=== PATIENT | male | born 1945 | race Hispanic/Latino ===

== ENCOUNTER → 2018-03-12 | Day surgery (SDC) | payer MEDICARE ==
[2018-03-10 13:45] LABS: BASOPHILS # (AUTO) 0.1 (0.0-0.1); EOSINOPHILS # (AUTO) 0.2 (0.0-0.4); EOSINOPHILS % 2.6 % (0.0-6.0); HEMATOCRIT 44.6 % (38.2-49.6); LYMPHOCYTES # (AUTO) 1.5 (1.0-3.2); LYMPHOCYTES % 23.5 % (18.0-39.1); MEAN CORPUSCULAR HEMOGLOBIN 25.1 pg (28-32); MEAN CORPUSCULAR HGB CONC 31.4 g/dL (31-35); MEAN CORPUSCULAR VOLUME 79.9 fL (81-99); MONOCYTES # (AUTO) 0.7 (0.2-0.8); NEUTROPHILS # (AUTO) 3.9 (2.1-6.9); NEUTROPHILS % 61.7 % (38.7-80.0); PLATELET COUNT 218 x10e3/uL (140-360); RED BLOOD COUNT 5.58 x10e6/uL (4.3-5.7); RED CELL DISTRIBUTION WIDTH 16.8 % (11.7-14.4)
--- NOTE | 2018-03-10 13:48 | Diagnostic Imaging Report ---
PROCEDURE: Frontal and lateral views of the chest. COMPARISON: None. INDICATIONS: PREOPERATIVE CHEST XRAY FOR UROLOGY SURGERY FINDINGS: Lines/tubes: None. Lungs: The lungs are well inflated and clear. There is no evidence of pneumonia or pulmonary edema. Pleura: There is no pleural effusion or pneumothorax. Heart and mediastinum: The heart and the mediastinum are normal. Bones: No acute bony abnormality. Degenerative changes of the thoracic spine. IMPRESSION: No acute cardiopulmonary disease. Dictated by: Gianfranco Landon M.D. on 03/10/2018 at 13:53 Electronically approved by: Gianfranco Landon M.D. on 03/10/2018 at 13:53
[2018-03-10 14:03] LABS: ANION GAP 13.9 mmol/L (8-16); CALCIUM 9.6 mg/dL (8.4-10.2); CREATININE, SERUM 1.3 mg/dL (0.72-1.25); POTASSIUM 3.9 mmol/L (3.5-5.1)
[~2018-03-12] MED LIST: ALBUTEROL0.63 MG/3 INH; ALENDRONATE SOD70 MG PO; ALPRAZOLAM0.5 MG PO; ARICEPT5 MG PO; ASPIR 8181 MG PO; CALCIUM600 MG PO; CARVEDILOL12.5 MG PO; CEFTRIAXONE SOD 1 GM VIAL ONE; CICLOPIROX15 GM TOP; DEXAMETHASONE SOD PHOS INJ 4 MG/ML VIAL ONE; DICLOFENAC TOP; FLUTICASONE PO; HYDROCHLOROTHIA25 MG PO; IMIPRAMINE HCL25 MG PO; IOPAMIDOL 300MG/ML 50ML INFUS..BTL IV ONE; LIDOCAINE HCL 2% LOCAL INJ 5 ML SDV VIAL INJ ONE; LINZESS PO; LISINOPRIL10 MG PO; METFORMIN HCL500 MG PO; MONTELUKAST SOD10 MG PO; NAPROXEN500 M1 PO; OMEPRAZOLE40 MG PO; ONDANSETRON HCL INJ 2 MG/ML VIAL ONE; OXYBUTYNIN CHLOR5 M1 PO; PANTOPRAZOLE SO40 MG PO; PAZEO OP; PRAVASTATIN SOD40 MG PO; PRO AIR INH; PROPOFOL IV EMULSION 10 MG/ML 20 ML VIAL ONE; SERTRALINE HCL100 MG PO; SEVOFLURANE INHAL SOLN 250 ML PEN BTL ONE; SYMBICORT 16010.2 GM INH; TRAZODONE HCL50 MG PO
--- NOTE | 2018-05-04 14:25 | Operative Report ---
DATE OF PROCEDURE: March 12, 2018 PREOPERATIVE DIAGNOSES: 1. Nephrolithiasis. 2. Possible interstitial cystitis. POSTOPERATIVE DIAGNOSES: 1. Nephrolithiasis. 1. Possible interstitial cystitis. PROCEDURES PERFORMED: 1. Cystourethroscopy with bilateral ureteral catheterization and retrograde ureteropyelography (separate procedure performed to evaluate the nephrolithiasis). 2. Interpretation of retrograde ureteropyelography. 3. Supervision of fluoroscopy. No radiologist present. 4. Cystourethroscopy with hydrodistention (separate procedure performed to evaluate for interstitial cystitis). ANESTHESIA: General. COMPLICATIONS: None. CLINICAL SUMMARY: Harpreet Santiago is a 72-year-old man with a history of stone. The patient has refractory urge-type urinary incontinence, has failed multiple medications. He has failed 2 separate InterStim percutaneous stimulation tests. He is brought to the operating room for the above procedures. He is aware of the risks of bleeding, infection, injury to adjacent structures, need for additional procedures and elected to proceed. OPERATIVE PROCEDURE IN DETAIL: Informed consent was verified. Harpreet Santiago was properly identified, taken to the operating room and placed on the cystoscopy table in supine position, and anesthesia was uneventfully begun. The patient was then carefully and gently repositioned in the dorsal lithotomy position with all pressure points well padded. His genitalia were prepared and draped in the usual sterile fashion. The 22.5-Chilean cystoscope sheath with the visual obturator in place was atraumatically inserted in the patient's urethra. It was guided down the unremarkable distal urethra past some wide-caliber stricture that probably is not clinically significant at the bulbar region. We dilated across this stricture with the visual obturator and into the patient's prostate bed, which was not significant for any inflammation. We entered the patient's bladder, which was significant for grade 2 trabeculations throughout. There was a tiny little stone that was evacuated. The ureteral catheter was utilized to cannulate each ureter, and retrograde ureteropyelograms were performed. Interpretation of retrograde ureteropyelography: Contrast was instilled in a retrograde fashion bilaterally. There were no tumors. I could not visualize any of the patient's stones. Unobstructed drainage was observed bilaterally fluoroscopically. There was no hydronephrosis. Hydrodistention of the bladder was then carried out for exactly 2 minutes and at 80 cm of water height. Following holding this in place for 2 minutes, the patient had a bladder capacity under anesthesia of only 750 mL. Following drainage, panendoscopy revealed mild erythema and rare glomerulations. The patient's bladder was then drained, the cystoscope was withdrawn, and the patient was uneventfully reversed from anesthesia and taken to the recovery room in stable condition. There were no complications of the procedure. He tolerated the procedure well. Plans will be to follow the patient up in the office and determine whether he has responded and received any symptom relief from the hydrodistention. Job#: [id number] EV
--- OUTSIDE RECORDS SUMMARY | 2018-05-06 00:44 | XMS REPORT | Summary of Care ---
Author Author [facility] Primary Care [facility] Organization [facility] Address Unknown Phone Unavailable Encounter HQ Kimani(FIN) [id number] Date(s): 11/11/17 - 11/12/17 [facility] [address], [address] [place], [place] [address]- [phone] Vital Signs No data available for this section Problem List Condition Effective Dates Status Health Status Informant Allergic Active rhinitis(Confirmed) Benign essential Active hypertension(Confirm ed) Benign prostatic Active hyperplasia(Confirme d) Dementia(Confirmed) Active CPAP (continuous Active positive airway pressure) dependence(Confirmed ) GERD Active (gastroesophageal reflux disease)(Confirmed) BETHANY (generalized Active anxiety disorder)(Confirmed) S/P TKR (total knee Active replacement)(Confirm ed) Insomnia(Confirmed) Active Bilateral chronic Active knee pain(Confirmed) Mixed Active hyperlipidemia(Confi rmed) Polyarthralgia(Confi Active rmed) Osteoporosis(Confirm Active ed) Persistent Active cough(Confirmed) Elevated Active TSH(Confirmed) Bilateral shoulder Active pain(Confirmed) Sleep Active apnea(Confirmed) Type 2 diabetes Active mellitus without complications(Confir med) Unsteady Active gait(Confirmed) Allergies, Adverse Reactions, Alerts Substance Reaction Severity Status NKDA Active Medications alendronate 70 mg oral tablet 70 mg=1 tab, PO, Q7D, with 6 to 8 ounces plain water, at least 30 minutes before first food, beverage, or medication of the day, # 12 tab, 3 Refill(s), Pharmacy: [id number] Start Date: 11/11/17 Status: Ordered ProAir HFA 90 mcg/inh inhalation aerosol with adapter 2 puff, INHALER, Q6H, PRN wheezing, coughing, or shortness of breath, # 3 ea, 1 Refill(s), Pharmacy: [facility] #[id number] Start Date: 11/11/17 Status: Ordered Results No data available for this section Immunizations Given and Recorded Vaccine Date Status Refusal Reason pneumococcal 13-valent vaccine1 09/02/17 Given 1Result Comment: Patient waited 15 min with no reaction. Procedures Procedure Date Related Diagnosis Body Site Status Examination of eye1 08/28/17 Completed Reduction of fracture of upper arm with 2012 Completed internal fixation2 Total replacement of right knee joint 2012 Completed Replacement of right knee joint Completed 1DR Jaylon 2left forearm Social History Social History Type Response Substance Abuse Use: None. Exercise Exercise type: none. Employment/School Status: Retired. Other: Lives by himself at a senior community. Residence is tailored to needs of elderly. Has a care provider for 3 hours daily. Occasionally uses a cane/walker with gait.. Alcohol Past, Type Beer, Liquor. Smoking Status Never smoker; Exposure to Tobacco Smoke None; Cigarette Smoking Last 365 Days No; Reg Smoking Cessation Counseling No entered on: 10/26/17 Assessment and Plan No data available for this section
--- OUTSIDE RECORDS SUMMARY | 2018-05-06 00:44 | XMS REPORT | Summary of Care ---
Author Author [facility] Organization [facility] Address Unknown Phone Unavailable Encounter HQ Kimani(FIN) [id number] Date(s): 09/14/17 - 09/15/17 [facility] [address], [address] [place], [place] [address]- [phone] Vital Signs No data available for this [...] Substance Reaction Severity Status NKDA Active Medications No data available for this section Results No data available for this section [...] Alcohol Past, Type Beer, Liquor. Smoking Status Former smoker; Type: Cigarettes; Exposure to Tobacco Smoke None; Cigarette Smoking Last 365 Days No; Reg Smoking Cessation Counseling No entered on: 12/08/17 Assessment and Plan No data available for this section
--- OUTSIDE RECORDS SUMMARY | 2018-05-06 00:44 | XMS REPORT | Summary of Care ---
Author Author [facility] Organization [facility] Address Unknown Phone Unavailable Encounter NAILA Harman(FIN) [id number] Date(s): 12/08/17 - 12/08/17 [facility] [address] [place] [address]- Discharge Disposition: Home or Self Care Attending Physician: Severo Carballo MD Referring Physician: Severo Carballo MD Vital Signs No data available for this [...]
--- OUTSIDE RECORDS SUMMARY | 2018-05-06 00:44 | XMS REPORT | Summary of Care ---
Author Author [facility] Organization [facility] Address Unknown Phone Unavailable Encounter NAILA Harman(FIN) [id number] Date(s): 09/14/17 - 09/15/17 [facility] [address], [address] [place], [place] [address]- [phone] Vital Signs No data available for this [...]
--- OUTSIDE RECORDS SUMMARY | 2018-05-06 00:44 | XMS REPORT | Summary of Care ---
Author Author [facility] Organization [facility] Address Unknown Phone Unavailable Encounter NAILA Harman(FIN) [id number] Date(s): 09/02/17 - 09/02/17 [facility] [address], [address] [place] [address]- [phone] Discharge Disposition: Home or Self Care Attending Physician: Khushbu Olmstead MD Vital Signs Most recent to 1 oldest [Reference Range]: Height 154.94 cm (09/02/17 1:40 PM) Temperature Oral 97.8 DegF [96.4-99.1 DegF] (09/02/17 1:40 PM) Blood Pressure 142/74 mmHg [90-140/60-90 mmHg] *HI* (09/02/17 1:40 PM) Respiratory Rate 16 BRMIN [14-20 BRMIN] (09/02/17 1:40 PM) Peripheral Pulse 63 bpm Rate [60-100 bpm] (09/02/17 1:40 PM) Weight 88.182 kg (09/02/17 1:40 PM) Body Mass Index 36.73 m2 (09/02/17 1:40 PM) Problem List Condition Effective Dates Status Health [...] Substance Reaction Severity Status NKDA Active Medications acitretin 25 mg oral capsule 25 mg=1 cap, PO, Daily, # 14 cap, 0 Refill(s) Start Date: 09/02/17 Stop Date: 09/16/17 Status: Ordered albuterol 0.083% inhalation solution 2.5 mg=3 mL, NEB, Q6H, PRN as needed for shortness of breath and wheezing, # 300 mL, 3 Refill(s), Pharmacy: [facility]/pharmacy #[id number] Start Date: 09/10/17 Status: Ordered albuterol 0.083% inhalation solution 2.5 mg=3 mL, NEB, Q6H, 0 Refill(s) Start Date: 09/02/17 Stop Date: 09/10/17 Status: Completed alendronate 70 mg oral tablet 70 mg=1 tab, PO, Q7D, with 6 to 8 ounces plain water, at least 30 minutes before first food, beverage, or medication of the day, # 12 tab, 3 Refill(s) Start Date: 09/02/17 Stop Date: 11/11/17 Status: Discontinued ALPRAZOLam 0.5 mg oral tablet 0.5 mg=1 tab, PO, Daily, PRN anxiety, # 30 tab, 0 Refill(s) Start Date: 09/02/17 Stop Date: 09/02/18 Status: Ordered ALPRAZOLam 0.5 mg oral tablet 0.5 mg=1 tab, PO, Daily, # 30 tab, 0 Refill(s) Start Date: 09/02/17 Stop Date: 09/02/17 Status: Discontinued Brianna Low Dose 81 mg oral delayed release tablet 81 mg=1 tab, PO, Daily, 0 Refill(s) Start Date: 09/02/17 Status: Ordered Calcium 600+D oral tablet 1 tab, PO, BID, 0 Refill(s) Start Date: 09/02/17 Status: Ordered carvedilol 6.25 mg oral tablet 6.25 mg=1 tab, PO, BID, # 180 tab, 1 Refill(s) Start Date: 09/02/17 Stop Date: 10/09/17 Status: Discontinued ciclopirox topical 8% solution 1 appl, TOP, Daily, # 9.9 ml, 11 Refill(s) Start Date: 09/02/17 Stop Date: 09/16/17 Status: Discontinued clobetasol topical 0.05% cream 1 appl, TOP, BID, # 60 gm, 0 Refill(s) Start Date: 09/02/17 Stop Date: 09/16/17 Status: Ordered diclofenac sodium 1% topical cream 0 Refill(s) Start Date: 09/02/17 Status: Ordered donepezil 10 mg oral tablet 10 mg=1 tab, PO, Daily, # 90 tab, 1 Refill(s) Start Date: 09/02/17 Stop Date: 09/02/17 Status: Discontinued donepezil 10 mg oral tablet 10 mg=1 tab, PO, Daily, # 90 tab, 1 Refill(s), Pharmacy: [facility]/pharmacy #[id number] Start Date: 09/02/17 Stop Date: 03/01/18 Status: Ordered fexofenadine 180 mg oral tablet 180 mg=1 tab, PO, Daily, # 90 tab, 0 Refill(s) Start Date: 09/02/17 Stop Date: 09/24/17 Status: Discontinued fluticasone 50 mcg inhalation powder 50 microgram=1 ea, INHALATION, BID, # 180 ea, 0 Refill(s) Start Date: 09/02/17 Status: Ordered Home Medication Milanta, PO, Daily, Refill(s) 0 Start Date: 09/02/17 Stop Date: 09/24/17 Status: Discontinued Home Medication Nighttime cough, PO, Daily, Refill(s) 0 Start Date: 09/02/17 Stop Date: 09/24/17 Status: Discontinued hydrochlorothiazide 12.5 mg oral tablet 12.5 mg=1 tab, PO, Daily, # 90 tab, 1 Refill(s) Start Date: 09/02/17 Status: Ordered Linzess 145 mcg oral capsule 145 microgram=1 cap, PO, Daily, 30 minutes prior to the first meal of the day, # 30 cap, 0 Refill(s) Start Date: 09/02/17 Stop Date: 10/09/17 Status: Discontinued metFORMIN 500 mg oral tablet 500 mg=1 tab, PO, BID-Meals, # 180 tab, 1 Refill(s) Start Date: 09/02/17 Stop Date: 09/16/17 Status: Discontinued montelukast 10 mg oral tablet 10 mg=1 tab, PO, Bedtime, # 90 tab, 1 Refill(s) Start Date: 09/02/17 Stop Date: 10/09/17 Status: Discontinued naproxen 500 mg oral tablet 500 mg=1 tab, PO, BID, PRN Pain, # 30 tab, 0 Refill(s) Start Date: 09/02/17 Status: Ordered pantoprazole 40 mg oral enteric coated tablet 40 mg=1 tab, PO, Daily, # 90 tab, 1 Refill(s) Start Date: 09/02/17 Status: Ordered pravastatin 40 mg oral tablet 40 mg=1 tab, PO, Bedtime, # 90 tab, 1 Refill(s) Start Date: 09/02/17 Status: Ordered ProAir HFA 90 mcg/inh inhalation aerosol with adapter 1 puff, INHALER, Q4H, PRN for wheezing, # 8.5 gm, 0 Refill(s) Start Date: 09/02/17 Stop Date: 09/10/17 Status: Completed sertraline 100 mg oral tablet 100 mg=1 tab, PO, Daily, # 90 tab, 0 Refill(s) Start Date: 09/02/17 Status: Ordered Symbicort 160/4.5 inhalation aerosol with adapter 2 puff, INHALATION, BID, # 1 ea, 1 Refill(s) Start Date: 09/02/17 Status: Ordered trazodone 100 mg oral tablet 100 mg=1 tab, PO, Bedtime, PRN Insomnia, X 30 day, # 30 tab, 0 Refill(s), Pharmacy: [facility]/pharmacy #[id number] Start Date: 10/30/17 Stop Date: 11/25/17 Status: Completed trazodone 100 mg oral tablet 100 mg=1 tab, PO, Bedtime, PRN Insomnia, # 30 tab, 0 Refill(s), Pharmacy: [facility]/ pharmacy #[id number] Start Date: 09/02/17 Stop Date: 09/30/17 Status: Completed trazodone 100 mg oral tablet 100 mg=1 tab, PO, Bedtime, PRN Insomnia, # 30 tab, 0 Refill(s), Pharmacy: [facility]/ pharmacy #[id number] Start Date: 09/30/17 Stop Date: 10/30/17 Status: Completed trazodone 50 mg oral tablet 50 mg=1 tab, PO, Bedtime, # 30 tab, 1 Refill(s) Start Date: 09/02/17 Stop Date: 09/02/17 Status: Discontinued Results No data available for this section [...]
--- OUTSIDE RECORDS SUMMARY | 2018-05-06 00:44 | XMS REPORT | Summary of Care ---
Author Author [facility] Organization [facility] Address Unknown Phone Unavailable Encounter HQ Kimani(FIN) [id number] Date(s): 11/25/17 - 11/26/17 [facility] [address], [address] [place], [place] [address]- [phone] Vital Signs No data available for this [...] Substance Reaction Severity Status NKDA Active Medications trazodone 100 mg oral tablet 100 mg=1 tab, PO, Bedtime, PRN Insomnia, # 30 tab, 0 Refill(s), Pharmacy: [facility]/ pharmacy #[id number] Start Date: 11/25/17 Stop Date: 12/25/17 Status: Ordered Results No data available for this section Immunizations Given and Recorded Vaccine Date Status Refusal Reason pneumococcal 13-valent vaccine1 09/02/17 Given 1Result Comment: Patient waited 15 min with no reaction. Procedures Procedure Date Related Diagnosis Body Site Status Examination of eye1 08/28/17 Completed Reduction of fracture of upper arm with 2012 Completed internal fixation2 Total replacement of right knee joint 2013 Completed Replacement of right knee joint Completed [...]
--- OUTSIDE RECORDS SUMMARY | 2018-05-06 00:44 | XMS REPORT | Summary of Care ---
Author Author [facility] Care [facility] Organization [facility] Address Unknown Phone Unavailable Encounter NAILA Harman(FIN) [id number] Date(s): 09/14/17 - 09/15/17 [facility] [address], [address] [place], [place] [address]- [phone] Vital Signs No data available for this [...] Substance Reaction Severity Status NKDA Active Medications ciclopirox topical 8% solution 1 appl, TOP, Daily, # 7 mL, 3 Refill(s), Pharmacy: [id number] Start Date: 09/16/17 Stop Date: 09/16/18 Status: Ordered metFORMIN 500 mg oral tablet 500 mg=1 tab, PO, BID-Meals, # 180 tab, 1 Refill(s), Pharmacy: [facility] # [id number] Start Date: 09/16/17 Stop Date: 03/15/18 Status: Ordered Pazeo ophthalmic solution 1 drp, BOTH EYES, Daily, # 3 mL, 1 Refill(s), Pharmacy: [facility] #[id number] Start Date: 09/16/17 Stop Date: 09/16/18 Status: Ordered Results No data available for [...]
--- OUTSIDE RECORDS SUMMARY | 2018-05-06 00:44 | XMS REPORT | Summary of Care ---
Author Author [facility] Organization [facility] Address Unknown Phone Unavailable Encounter NAILA Harman(FIN) [id number] Date(s): 12/22/17 - 12/23/17 [facility] [address], [address] [place], [place] [address]- [phone] Vital Signs No data available for this [...] Substance Reaction Severity Status NKDA Active Medications donepezil 10 mg oral tablet 10 mg=1 tab, PO, Daily, # 90 tab, 1 Refill(s), Pharmacy: [facility] #[id number] Start Date: 12/22/17 Stop Date: 06/20/18 Status: Ordered OneTouch Ultra Blue Blood Glucose Test Strip Check blood sugar once daily., MISC, Daily, # 100 ea, Not insulin dependent, Does not use insulin pump, Last DM eval date 09/22/17, 5 Refill(s) Start Date: 12/22/17 Status: Ordered Results No data available for [...]
--- OUTSIDE RECORDS SUMMARY | 2018-05-06 00:44 | XMS REPORT | Summary of Care ---
Author Author [facility] Organization [facility] Address Unknown Phone Unavailable Encounter NAILA Harman(FIN) [id number] Date(s): 09/17/17 - 09/18/17 [facility] [address], [address] [place], [place] [address]- [phone] Vital Signs No data available for this [...]
--- OUTSIDE RECORDS SUMMARY | 2018-05-06 00:44 | XMS REPORT | Summary of Care ---
Author Author [facility] Organization [facility] Address Unknown Phone Unavailable Encounter HQ Rachael_ursula(FIN) [id number] Date(s): 11/09/17 - 11/10/17 [facility] [address], [address] [place], [place] [address]- [phone] Vital Signs No data available for this [...]
--- OUTSIDE RECORDS SUMMARY | 2018-05-06 00:44 | XMS REPORT | Summary of Care ---
Author Author [facility] Organization [facility] Address Unknown Phone Unavailable Encounter HQ Kimani(FIN) [id number] Date(s): 09/24/17 - 09/24/17 [facility] [address], [address] [place], [place] [address]- [phone] Discharge Disposition: Home or Self Care Attending Physician: Edyta Casas MD Vital Signs Most recent to 1 oldest [Reference Range]: Height 157.48 cm (09/24/17 12:45 PM) Temperature Oral 97.9 DegF [96.4-99.1 DegF] (09/24/17 12:45 PM) Blood Pressure 135/79 mmHg [90-140/60-90 mmHg] (09/24/17 12:45 PM) Respiratory Rate 16 BRMIN [14-20 BRMIN] (09/24/17 12:45 PM) Peripheral Pulse 70 bpm Rate [60-100 bpm] (09/24/17 12:45 PM) Weight 89.545 kg (09/24/17 12:45 PM) Body Mass Index 36.11 m2 (09/24/17 12:45 PM) Problem List Condition Effective Dates Status [...] Substance Reaction Severity Status NKDA Active Medications Azithromycin 5 Day Dose Pack 250 mg oral tablet See Instructions, Take 2 tablets by mouth the first day then 1 tablet by mouth days 2-5., X 5 day, # 6 tab, 0 Refill(s), [id number] Start Date: 09/24/17 Stop Date: 09/29/17 Status: Completed levocetirizine 5 mg oral tablet 5 mg=1 tab, PO, Bedtime, PRN as needed for allergy symptoms, # 90 tab, 0 Refill( s), [id number], Stop fexofenadine Start Date: 09/24/17 Stop Date: 12/23/17 Status: Ordered Results No data available for [...]
--- OUTSIDE RECORDS SUMMARY | 2018-05-06 00:44 | XMS REPORT | Summary of Care ---
Author Author [facility] Organization [facility] Address Unknown Phone Unavailable Encounter NAILA Harman(BRITNEY) [id number] Date(s): 09/15/17 - 09/15/17 [facility] [address] [place] [address] Encounter Diagnosis Age-related osteoporosis without current pathological fracture (Final) - 09/18/17 Other specified disorders of bone density and structure, other site (Final) - Other specified disorders of bone density and structure, left thigh (Final) - Discharge Disposition: Home or Self Care Attending Physician: Edyta Casas MD Referring Physician: Edyta Casas MD Vital Signs No data available for [...]
--- OUTSIDE RECORDS SUMMARY | 2018-05-06 00:45 | XMS REPORT | Summary of Care ---
Author Author [facility] Organization [facility] Address Unknown Phone Unavailable Encounter HQ Kimani(FIN) [id number] Date(s): 10/06/17 - 10/06/17 [facility] [address] [place] [address] Encounter Diagnosis Cough (Final) - 10/11/17 Discharge Disposition: Home or Self Care Attending Physician: Tiana Odell MD Vital Signs No data available for [...] Reg Smoking Cessation Counseling No entered on: 01/08/18 Assessment and Plan No data available for this section
--- OUTSIDE RECORDS SUMMARY | 2018-05-06 00:45 | XMS REPORT | Summary of Care ---
Author Author [facility] Organization [facility] Address Unknown Phone Unavailable Encounter HQ Kimani(BRITNEY) [id number] Date(s): 01/08/18 - 01/10/18 [facility] [address] [place] [address]- [phone] Discharge Disposition: Home or Self Care Attending Physician: Sho Priest MD Admitting Physician: Sho Priest MD Vital Signs 1 2 3 Most recent to oldest [Reference Range]: 162.56 cm (01/08/18 7:03 AM) Height 98 DegF (01/10/18 11:03 AM) 97.3 DegF (01/10/18 7:06 AM) 97.7 DegF (01/10/18 3:37 AM) Temperature Oral [96.4-99.1 DegF] 169/103 mmHg *HI* (01/10/18 11:03 AM) 152/83 mmHg *HI* (01/10/18 7:06 AM) 166/96 mmHg *HI* (01/10/18 3:37 AM) Blood Pressure [90-140/60-90 mmHg] 18 BRMIN (01/10/18 3:37 AM) 18 BRMIN (01/09/18 11:34 PM) 18 BRMIN (01/09/18 7:51 PM) Respiratory Rate [14-20 BRMIN] 68 bpm (01/10/18 11:03 AM) 78 bpm (01/10/18 7:06 AM) 69 bpm (01/10/18 3:37 AM) Peripheral Pulse Rate [60-100 bpm] 86.364 kg (01/08/18 7:03 AM) Weight 32.68 m2 (01/08/18 7:03 AM) Body Mass Index Problem List Condition Effective Dates Status Health [...] Substance Reaction Severity Status NKDA Active Medications acetaminophen 650 mg, 2 tab, Route: PO, Drug form: TAB, Q4H, Dosing Weight 86.364, kg, PRN Pain 1-3/Temp > 100.4 F, Start date: 01/08/18 9:35:00 CDT, Duration: 30 day, Stop date: 02/07/18 9:34:00 CDT Notes: Do not exceed 4 gm/day. (Same as: Tylenol) Start Date: 01/08/18 Stop Date: 01/10/18 Status: Discontinued acetaminophen-hydrocodone 325 mg-5 mg oral tablet 1 tab, Route: PO, Drug Form: TAB, Dosing Weight 86.364, kg, Q6H, PRN Pain Score 4-6, Start date: 01/08/18 9:35:00 CDT, Duration: 30 day, Stop date: 02/07/18 9: 34:00 CDT Notes: (Same as: Lawrence 325/5) Do not exceed 4gm/day of acetaminophen. Start Date: 01/08/18 Stop Date: 01/10/18 Status: Discontinued aspirin 81 mg, 1 tab, Route: PO, Drug form: ECTAB, Daily, Dosing Weight 86.364, kg, Start date: 01/08/18 20:00:00 CDT, Duration: 30 day, Stop date: 02/07/18 9:00: 00 CDT Notes: Do not crush or chew.(Same As: Ecotrin) Start Date: 01/08/18 Stop Date: 01/10/18 Status: Discontinued Ativan 1 mg, Route: IVP, Drug form: INJ, ONCE, Dosing Weight 86.364, kg, Priority: STAT , Start date: 01/08/18 7:29:00 CDT, Stop date: 01/08/18 7:29:00 CDT Start Date: 01/08/18 Stop Date: 01/08/18 Status: Completed beclomethasone 1 puff, Route: INHALER, Drug Form: AERO/A, BID, Start date: 01/09/18 9:00:00 CDT , Duration: 30 day, Stop date: 02/07/18 17:00:00 CDT Notes: WASTE: Aerosol - Return to Pharmacy (Same As: Qvar) Start Date: 01/09/18 Stop Date: 01/10/18 Status: Discontinued calcium gluconate + Sodium Chloride 0.9% IV 100 mL 2,000 mg, 20 mL, Route: IVPB, ONCE, Dosing Weight 86.364, kg, Start date: 13:12:00 CDT, Stop date: 01/09/18 13:12:00 CDT Notes: WASTE: F/P - Sink; E - Municipal Trash Bin Start Date: 01/09/18 Stop Date: 01/09/18 Status: Deleted carvedilol 6.25 mg, 2 tab, Route: PO, Drug form: TAB, BID, Dosing Weight 86.364, kg, Start date: 01/08/18 21:00:00 CDT, Duration: 30 day, Stop date: 02/07/18 9:00:00 CDT Notes: Give with food. (Same As: Coreg) Start Date: 01/08/18 Stop Date: 01/10/18 Status: Discontinued chlordiazePOXIDE 25 mg oral capsule (Librium) 25 mg, 1 cap, Route: PO, ONCE, Dosing Weight 86.364, kg, Priority: STAT, Start date: 01/08/18 7:29:00 CDT, Stop date: 01/08/18 7:29:00 CDT Start Date: 01/08/18 Stop Date: 01/08/18 Status: Completed chlordiazePOXIDE 25 mg oral capsule (Librium) 25 mg, 1 cap, Route: PO, Drug form: CAP, Q6H, Dosing Weight 86.364, kg, PRN Withdrawal, Alcohol Withdrawal, Start date: 01/08/18 11:54:00 CDT, Duration: 30 day, Stop date: 02/07/18 11:53:00 CDT Start Date: 01/08/18 Stop Date: 01/10/18 Status: Discontinued Dextrose 50% Syringe 25 gm, 50 mL, Route: IVP, Drug Form: INJ, Dosing Weight 86.364, kg, PRN, PRN Blood Glucose Results, Start date: 01/08/18 7:19:00 CDT, Duration: 30 day, Stop date: 02/07/18 7:18:00 CDT Start Date: 01/08/18 Stop Date: 01/10/18 Status: Discontinued Dextrose 50% Syringe 12.5 gm, 25 mL, Route: IVP, Drug Form: INJ, Dosing Weight 86.364, kg, PRN, PRN Blood Glucose Results, Start date: 01/08/18 7:19:00 CDT, Duration: 30 day, Stop date: 02/07/18 7:18:00 CDT Start Date: 01/08/18 Stop Date: 01/10/18 Status: Discontinued Dextrose 50% Syringe 25 mL, Route: IVP, Dosing Weight 86.364, kg, PRN, PRN Blood Glucose Results, Start date: 01/08/18 19:39:00 CDT, Duration: 30 day, Stop date: 02/07/18 19:38: 00 CDT Start Date: 01/08/18 Stop Date: 01/08/18 Status: Deleted Dextrose 50% Syringe 50 mL, Route: IVP, Dosing Weight 86.364, kg, PRN, PRN Blood Glucose Results, Start date: 01/08/18 19:39:00 CDT, Duration: 30 day, Stop date: 02/07/18 19:38: 00 CDT Start Date: 01/08/18 Stop Date: 01/08/18 Status: Deleted Dextrose 50% Syringe 50 mL, Route: IVP, Dosing Weight 86.364, kg, PRN, PRN Blood Glucose Results, Start date: 01/08/18 19:39:00 CDT, Duration: 30 day, Stop date: 02/07/18 19:38: 00 CDT Start Date: 01/08/18 Stop Date: 01/08/18 Status: Deleted Dextrose 50% Syringe 25 mL, Route: IVP, Dosing Weight 86.364, kg, PRN, PRN Blood Glucose Results, Start date: 01/08/18 19:39:00 CDT, Duration: 30 day, Stop date: 02/07/18 19:38: 00 CDT Start Date: 01/08/18 Stop Date: 01/08/18 Status: Deleted docusate 100 mg, 1 cap, Route: PO, Drug form: CAP, BID, Dosing Weight 86.364, kg, PRN as needed for constipation, Start date: 01/08/18 9:35:00 CDT, Duration: 30 day, Stop date: 02/07/18 9:34:00 CDT Notes: (Same as: Colace) (Do Not Crush) Start Date: 01/08/18 Stop Date: 01/10/18 Status: Discontinued donepezil 10 mg, 2 tab, Route: PO, Drug form: TAB, Daily, Dosing Weight 86.364, kg, Start date: 01/09/18 9:00:00 CDT, Duration: 30 day, Stop date: 02/07/18 9:00:00 CDT Notes: (Same as: Aricept) Start Date: 01/09/18 Stop Date: 01/10/18 Status: Discontinued fluticasone 50 mcg inhalation powder 50 microgram, 1 ea, Route: INHALATION, Drug Form: PWDR, Dosing Weight 86.364, kg , BID, Start date: 01/09/18 9:00:00 CDT, Duration: 30 day, Stop date: 02/07/18 17:00:00 CDT Start Date: 01/09/18 Stop Date: 01/08/18 Status: Deleted fluticasone nasal 0.05 mg/inh spray 50 microgram, 1 spray, Route: NASAL, Drug Form: SPRY, Dosing Weight 86.364, kg, Daily, Start date: 01/09/18 9:00:00 CDT, Duration: 30 day, Stop date: 02/07/18 9 :00:00 CDT Start Date: 01/09/18 Stop Date: 01/08/18 Status: Canceled glucagon 1 mg, Route: IM, Drug form: PDR/INJ, PRN, Dosing Weight 86.364, kg, PRN Blood Glucose Results, Start date: 01/08/18 7:19:00 CDT, Duration: 30 day, Stop date: 02/07/18 7:18:00 CDT Start Date: 01/08/18 Stop Date: 01/10/18 Status: Discontinued glucagon 1 mg, Route: IM, PRN, Dosing Weight 86.364, kg, PRN Blood Glucose Results, Start date: 01/08/18 19:39:00 CDT, Duration: 30 day, Stop date: 02/07/18 19:38: 00 CDT Start Date: 01/08/18 Stop Date: 01/08/18 Status: Deleted glucagon 1 mg, Route: IM, PRN, Dosing Weight 86.364, kg, PRN Blood Glucose Results, Start date: 01/08/18 19:39:00 CDT, Duration: 30 day, Stop date: 02/07/18 19:38: 00 CDT Start Date: 01/08/18 Stop Date: 01/08/18 Status: Deleted insulin lispro 1 unit, 0.01 mL, Route: SUB-Q, Drug form: SOLN, Bedtime, Dosing Weight 86.364, kg, PRN Blood Glucose Results, Start date: 01/08/18 19:39:00 CDT, Duration: 30 day, Stop date: 02/07/18 19:38:00 CDT Notes: (Same as: Humalog ) Roll in palms of hands gently; Do not shake ` vigorously. "Single Patient Use Only " WASTE: F/P - Black; E - Municipal Trash Bin Stable for 28 days at room temperature.Expires in days from Date Start Date: 01/08/18 Stop Date: 01/10/18 Status: Discontinued insulin lispro 3 unit, 0.03 mL, Route: SUB-Q, Drug form: SOLN, Bedtime, Dosing Weight 86.364, kg, PRN Blood Glucose Results, Start date: 01/08/18 19:39:00 CDT, Duration: 30 day, Stop date: 02/07/18 19:38:00 CDT Notes: (Same as: Humalog ) Roll in palms of hands gently; Do not shake ` vigorously. "Single Patient Use Only " WASTE: F/P - Black; E - Municipal Trash Bin Stable for 28 days at room temperature.Expires in days from Date Start Date: 01/08/18 Stop Date: 01/10/18 Status: Discontinued insulin lispro 2 unit, 0.02 mL, Route: SUB-Q, Drug form: SOLN, Bedtime, Dosing Weight 86.364, kg, PRN Blood Glucose Results, Start date: 01/08/18 19:39:00 CDT, Duration: 30 day, Stop date: 02/07/18 19:38:00 CDT Notes: (Same as: Humalog ) Roll in palms of hands gently; Do not shake ` vigorously. "Single Patient Use Only " WASTE: F/P - Black; E - Municipal Trash Bin Stable for 28 days at room temperature.Expires in days from Date Start Date: 01/08/18 Stop Date: 01/10/18 Status: Discontinued insulin lispro 4 unit, 0.04 mL, Route: SUB-Q, Drug form: SOLN, Bedtime, Dosing Weight 86.364, kg, PRN Blood Glucose Results, Start date: 01/08/18 19:39:00 CDT, Duration: 30 day, Stop date: 02/07/18 19:38:00 CDT Notes: (Same as: Humalog ) Roll in palms of hands gently; Do not shake ` vigorously. "Single Patient Use Only " WASTE: F/P - Black; E - Municipal Trash Bin Stable for 28 days at room temperature.Expires in days from Date Start Date: 01/08/18 Stop Date: 01/10/18 Status: Discontinued insulin lispro 8 unit, 0.08 mL, Route: SUB-Q, Drug form: SOLN, TID-Before Meals, Dosing Weight 86.364, kg, PRN Blood Glucose Results, Start date: 01/08/18 19:39:00 CDT, Duration: 30 day, Stop date: 02/07/18 19:38:00 CDT Notes: (Same as: Humalog ) Roll in palms of hands gently; Do not shake ` vigorously. "Single Patient Use Only " WASTE: F/P - Black; E - Municipal Trash Bin Stable for 28 days at room temperature.Expires in days from Date Start Date: 01/08/18 Stop Date: 01/10/18 Status: Discontinued insulin lispro 6 unit, 0.06 mL, Route: SUB-Q, Drug form: SOLN, TID-Before Meals, Dosing Weight 86.364, kg, PRN Blood Glucose Results, Start date: 01/08/18 19:39:00 CDT, Duration: 30 day, Stop date: 02/07/18 19:38:00 CDT Notes: (Same as: Humalog ) Roll in palms of hands gently; Do not shake ` vigorously. "Single Patient Use Only " WASTE: F/P - Black; E - Municipal Trash Bin Stable for 28 days at room temperature.Expires in days from Date Start Date: 01/08/18 Stop Date: 01/10/18 Status: Discontinued insulin lispro 10 unit, 0.1 mL, Route: SUB-Q, Drug form: SOLN, TID-Before Meals, Dosing Weight 86.364, kg, PRN Blood Glucose Results, Start date: 01/08/18 19:39:00 CDT, Duration: 30 day, Stop date: 02/07/18 19:38:00 CDT Notes: (Same as: Humalog ) Roll in palms of hands gently; Do not shake ` vigorously. "Single Patient Use Only " WASTE: F/P - Black; E - Municipal Trash Bin Stable for 28 days at room temperature.Expires in days from Date Start Date: 01/08/18 Stop Date: 01/10/18 Status: Discontinued insulin lispro 2 unit, 0.02 mL, Route: SUB-Q, Drug form: SOLN, TID-Before Meals, Dosing Weight 86.364, kg, PRN Blood Glucose Results, Start date: 01/08/18 19:39:00 CDT, Duration: 30 day, Stop date: 02/07/18 19:38:00 CDT Notes: (Same as: Humalog ) Roll in palms of hands gently; Do not shake ` vigorously. "Single Patient Use Only " WASTE: F/P - Black; E - Municipal Trash Bin Stable for 28 days at room temperature.Expires in days from Date Start Date: 01/08/18 Stop Date: 01/10/18 Status: Discontinued insulin lispro 4 unit, 0.04 mL, Route: SUB-Q, Drug form: SOLN, TID-Before Meals, Dosing Weight 86.364, kg, PRN Blood Glucose Results, Start date: 01/08/18 19:39:00 CDT, Duration: 30 day, Stop date: 02/07/18 19:38:00 CDT Notes: (Same as: Humalog ) Roll in palms of hands gently; Do not shake ` vigorously. "Single Patient Use Only " WASTE: F/P - Black; E - Municipal Trash Bin Stable for 28 days at room temperature.Expires in days from Date Start Date: 01/08/18 Stop Date: 01/10/18 Status: Discontinued Lovenox 40 mg, 0.4 mL, Route: SUB-Q, Drug form: INJ, [id number], Dosing Weight 86.364, kg , Start date: 01/08/18 20:00:00 CDT, Duration: 30 day, Stop date: 02/06/18 20:00 :00 CDT Notes: (Same as: Lovenox) Start Date: 01/08/18 Stop Date: 01/10/18 Status: Discontinued montelukast 10 mg, 1 tab, Route: PO, Drug form: TAB, Bedtime, Dosing Weight 86.364, kg, Start date: 01/08/18 21:00:00 CDT, Duration: 30 day, Stop date: 02/06/18 21:00: 00 CDT Notes: (Same as:Singulair) Start Date: 01/08/18 Stop Date: 01/10/18 Status: Discontinued NS (Bolus) IV 1,000 mL, 500 ml/hr, Infuse Over: 2 hr, Route: IV, 1,000, Drug form: INJ, ONCE, Priority: STAT, Dosing Weight 86.364 kg, Start date: 01/08/18 15:13:00 CDT, Stop date: 01/08/18 15:13:00 CDT Start Date: 01/08/18 Stop Date: 01/08/18 Status: Completed NS 1,000 mL 1,000 mL, Rate: 100 ml/hr, Infuse over: 10 hr, Route: IV, Dosing Weight 86.364 kg, Total Volume: 1,000, Start date: 01/08/18 9:36:00 CDT, Duration: 30 day, Stop date: 02/07/18 9:35:00 CDT, 2, m2 Start Date: 01/08/18 Stop Date: 01/09/18 Status: Discontinued ondansetron 4 mg, 1 tab, Route: PO, Drug form: TABDIS, Q6H, Dosing Weight 86.364, kg, PRN Nausea & Vomiting, Start date: 01/08/18 9:35:00 CDT, Duration: 30 day, Stop date : 02/07/18 9:34:00 CDT Notes: (Same as: Zofran ODT) Start Date: 01/08/18 Stop Date: 01/10/18 Status: Discontinued ondansetron 4 mg, Route: IVP, ONCE, Dosing Weight 86.364, kg, Priority: STAT, Start date: 7:19:00 CDT, Stop date: 01/08/18 7:19:00 CDT Start Date: 01/08/18 Stop Date: 01/08/18 Status: Discontinued Os-Cj 500 500 mg, 1 tab, Route: PO, Drug form: CHEWTAB, Q8H, Start date: 01/09/18 14:00: 00 CDT, Duration: 4 doses or times, Stop date: 01/10/18 14:00:00 CDT Notes: (Same As: Arnulfo)Calcium Carbonate 500 qu=421 mg elemental calcium Dose=_ mg calcium carbonate ( mg elemental calcium) Start Date: 01/09/18 Stop Date: 01/10/18 Status: Completed pantoprazole 40 mg, 1 tab, Route: PO, Drug form: ECTAB, Before Breakfast, Dosing Weight 86.364, kg, Start date: 01/09/18 7:30:00 CDT, Duration: 30 day, Stop date: 02/07 7:30:00 CDT Notes: Tablet should not be chewed or crushed.(Same as: Protonix) Start Date: 01/09/18 Stop Date: 01/10/18 Status: Discontinued potassium chloride 20 mEq oral tablet, extended release 40 mEq, 2 tab, Route: PO, Drug form: ERTAB, ONCE, Dosing Weight 86.364, kg, Start date: 01/09/18 13:12:00 CDT, Stop date: 01/09/18 13:12:00 CDT Notes: (Same as: K-Dur 20)"Do Not Crush"For patients unable to swallow tablet, dissolve in one half glass of water. Allow about 2 minutes for the tablets to disintegrate. Stir before giving to prepare slurry and administer.Please exclude Patients with feeding tube less than 14 Frisian (Dobhoff, J-tube etc) and pediatric and patients. With food and full glass of water Start Date: 01/09/18 Stop Date: 01/09/18 Status: Completed pravastatin 40 mg, 2 tab, Route: PO, Drug form: TAB, Bedtime, Dosing Weight 86.364, kg, Start date: 01/08/18 21:00:00 CDT, Duration: 30 day, Stop date: 02/06/18 21:00: 00 CDT Notes: (Same as: Pravachol) Start Date: 01/08/18 Stop Date: 01/10/18 Status: Discontinued Reglan 10 mg, 2 mL, Route: IVP, Drug form: INJ, ONCE, Dosing Weight 86.364, kg, Priority: STAT, Start date: 01/08/18 7:30:00 CDT, Stop date: 01/08/18 7:30:00 CDT Notes: (Same as: Reglan) Start Date: 01/08/18 Stop Date: 01/08/18 Status: Completed Saline Flush 0.9% 10 mL, Route: IVP, Drug Form: INJ, Dosing Weight 86.364, kg, PRN, PRN Line Flush , Start date: 01/08/18 7:19:00 CDT, Duration: 30 day, Stop date: 02/07/18 7:18: 00 CDT Notes: Same as: BD Posiflush Sterile Start Date: 01/08/18 Stop Date: 01/10/18 Status: Discontinued sertraline 100 mg, 1 tab, Route: PO, Drug form: TAB, Daily, Dosing Weight 86.364, kg, Start date: 01/09/18 9:00:00 CDT, Duration: 30 day, Stop date: 02/07/18 9:00:00 CDT Notes: (Same as: Zoloft) Start Date: 01/09/18 Stop Date: 01/10/18 Status: Discontinued Sodium Chloride 0.9% (Bolus) IV 1,000 mL, 1000 ml/hr, Infuse Over: 1 hr, Route: IV, 1,000, Drug form: INJ, ONCE , Priority: STAT, Dosing Weight 86.364 kg, Start date: 01/08/18 7:19:00 CDT, Stop date: 01/08/18 7:19:00 CDT Start Date: 01/08/18 Stop Date: 01/08/18 Status: Completed Sodium Chloride 0.9% IV 1,000 mL + M.V.I.-12 10 mL Daily + folic acid IV 1 mg Daily + thiamine IV 1 1,000 mL, Rate: 100 ml/hr, Infuse over: 10.1 hr, Route: IV, Dosing Weight 86.364 kg, Total Volume: 1,011.2, Start date: 01/08/18 7:29:00 CDT, Duration: 1 doses or times, Stop date: 01/08/18 17:34:00 CDT, 2, m2 Notes: PROTECT FROM LIGHTREFRIGERATE Start Date: 01/08/18 Stop Date: 01/08/18 Status: Completed Symbicort 160/4.5 inhalation aerosol with adapter 2 inhalation, Route: INHALATION, Drug Form: AERO/A, Dosing Weight 86.364, kg, BID, Start date: 01/09/18 9:00:00 CDT, Duration: 30 day, Stop date: 02/07/18 17: 00:00 CDT Notes: (Same as: Symbicort)WASTE: Aerosol - Return to Pharmacy Start Date: 01/09/18 Stop Date: 01/10/18 Status: Discontinued thiamine 100 mg, 1 tab, Route: PO, Drug form: TAB, Daily, Dosing Weight 86.364, kg, Start date: 01/09/18 9:00:00 CDT, Duration: 30 day, Stop date: 02/07/18 9:00:00 CDT Notes: (Same As: Vitamin B1) Start Date: 01/09/18 Stop Date: 01/10/18 Status: Discontinued trazodone 100 mg, 2 tab, Route: PO, Drug form: TAB, Bedtime, Dosing Weight 86.364, kg, PRN Insomnia, Start date: 01/08/18 19:42:00 CDT, Duration: 30 day, Stop date: 19:41:00 CDT Notes: (Same As: Desyrel) Start Date: 01/08/18 Stop Date: 01/10/18 Status: Discontinued Tylenol with Codeine #3 oral tablet 1 tab, PO, Q6H, PRN Pain, # 15 tab, 0 Refill(s) Start Date: 01/10/18 Status: Ordered Results ELECTROLYTES 1 2 3 Most recent to oldest [Reference Range]: 143 mEq/L (01/10/18 4:06 AM) 142 mEq/L (01/09/18 6:15 AM) 140 mEq/L (01/08/18 7:55 AM) Sodium Lvl [135-145 mEq/L] 3.7 mEq/L (01/10/18 4:06 AM) 3.2 mEq/L *LOW* (01/09/18 6:15 AM) 3.5 mEq/L (01/08/18 7:55 AM) Potassium Lvl [3.5-5.1 mEq/L] 109 mEq/L (01/10/18 4:06 AM) 107 mEq/L (01/09/18 6:15 AM) 102 mEq/L (01/08/18 7:55 AM) Chloride Lvl [95-109 mEq/L] 30 mEq/L (01/10/18 4:06 AM) 28 mEq/L (01/09/18 6:15 AM) 26 mEq/L (01/08/18 7:55 AM) CO2 [24-32 mEq/L] 7.7 mEq/L *LOW* (01/10/18 4:06 AM) 10.2 mEq/L (01/09/18 6:15 AM) 15.5 mEq/L (01/08/18 7:55 AM) AGAP [10.0-20.0 mEq/L] CHEM PANEL 1 2 3 Most recent to oldest [Reference Range]: 1.07 mg/dL (01/10/18 4:06 AM) 0.96 mg/dL (01/09/18 6:15 AM) 0.95 mg/dL (01/08/18 7:55 AM) Creatinine Lvl [0.50-1.40 mg/dL] 68 mL/min/1.73m2 1 *NA* (01/10/18 4:06 AM) 78 mL/min/1.73m2 2 *NA* (01/09/18 6:15 AM) 79 mL/min/1.73m2 3 *NA* (01/08/18 7:55 AM) eGFR 13 mg/dL (01/10/18 4:06 AM) 9 mg/dL (01/09/18 6:15 AM) 10 mg/dL (01/08/18 7:55 AM) BUN [7-22 mg/dL] 9 (01/09/18 6:15 AM) 11 (01/08/18 7:55 AM) B/C Ratio [6-25] 89 mg/dL (01/10/18 4:06 AM) 87 mg/dL (01/09/18 6:15 AM) 119 mg/dL *HI* (01/08/18 7:55 AM) Glucose Lvl [70-99 mg/dL] 5.5 g/dL *LOW* (01/09/18 6:15 AM) 7.2 g/dL (01/08/18 7:55 AM) Total Protein [6.4-8.4 g/dL] 3.0 g/dL *LOW* (01/09/18 6:15 AM) 3.8 g/dL (01/08/18 7:55 AM) Albumin Lvl [3.5-5.0 g/dL] 2.5 g/dL *LOW* (01/09/18 6:15 AM) 3.4 g/dL (01/08/18 7:55 AM) Globulin [2.7-4.2 g/dL] 1.2 (01/09/18 6:15 AM) 1.1 (01/08/18 7:55 AM) A/G Ratio [0.7-1.6] 7.9 mg/dL *LOW* (01/10/18 4:06 AM) 6.8 mg/dL 4 *CRIT* (01/09/18 6:15 AM) 7.9 mg/dL *LOW* (01/08/18 7:55 AM) Calcium Lvl [8.5-10.5 mg/dL] 1.6 mg/dL *LOW* (01/09/18 6:15 AM) 1.7 mg/dL *LOW* (01/08/18 7:55 AM) Magnesium Lvl [1.8-2.4 mg/dL] 31 unit/L (01/09/18 6:15 AM) 45 unit/L (01/08/18 7:55 AM) ALT [0-65 unit/L] 33 unit/L (01/09/18 6:15 AM) 46 unit/L *HI* (01/08/18 7:55 AM) AST [0-37 unit/L] 48 unit/L (01/09/18 6:15 AM) 86 unit/L (01/08/18 7:55 AM) Alk Phos [39-136 unit/L] 0.8 mg/dL (01/09/18 6:15 AM) 0.7 mg/dL (01/08/18 7:55 AM) Bili Total [0.2-1.3 mg/dL] 172 unit/L (01/08/18 7:55 AM) Lipase Lvl [73-393 unit/L] 0.84 mmol/L *HI* (01/08/18 7:55 AM) Ketone Quantitative [<=0.27 mmol/L] 0.9 mMol/L (01/09/18 6:15 AM) 2.8 mMol/L *HI* (01/08/18 4:42 PM) 6.3 mMol/L 5 *CRIT* (01/08/18 1:57 PM) Lactic Acid Lvl [0.5-2.2 mMol/L] 1Result Comment: The eGFR is calculated using the CKD-EPI formula. In most young , healthy individuals the eGFR will be >90 mL/min/1.73m2. The eGFR declines with age. An eGFR of 60-89 may be normal in some populations, particularly the elderly, for whom the CKD-EPI formula has not been extensively validated. Use of the eGFR is not recommended in the following populations: Individuals with unstable creatinine concentrations, including patients and those with serious co-morbid conditions. Patients with extremes in muscle mass or diet. The data above are obtained from the National Kidney Disease Education Program ( NKDEP) which additionally recommends that when the eGFR is used in patients with extremes of body mass index for purposes of drug dosing, the eGFR should be multiplied by the estimated BMI. 2Result Comment: The eGFR is calculated using the CKD-EPI formula. In most young , healthy individuals the eGFR will be >90 mL/min/1.73m2. The eGFR declines with age. An eGFR of 60-89 may be normal in some populations, particularly the elderly, for whom the CKD-EPI formula has not been extensively validated. Use of the eGFR is not recommended in the following populations: Individuals with unstable creatinine concentrations, including patients and those with serious co-morbid conditions. Patients with extremes in muscle mass or diet. The data above are obtained from the National Kid[employer] Disease Education Program ( NKDEP) which additionally recommends that when the eGFR is used in patients with extremes of body mass index for purposes of drug dosing, the eGFR should be multiplied by the estimated BMI. 3Result Comment: The eGFR is calculated using the CKD-EPI formula. In most young , healthy individuals the eGFR will be >90 mL/min/1.73m2. The eGFR declines with age. An eGFR of 60-89 may be normal in some populations, particularly the elderly, for whom the CKD-EPI formula has not been extensively validated. Use of the eGFR is not recommended in the following populations: Individuals with unstable creatinine concentrations, including patients and those with serious co-morbid conditions. Patients with extremes in muscle mass or diet. The data above are obtained from the National Kidney Disease Education Program ( NKDEP) which additionally recommends that when the eGFR is used in patients with extremes of body mass index for purposes of drug dosing, the eGFR should be multiplied by the estimated BMI. 4Result Comment: Critical Result(s) called to Joshua Clement at 01/09/2018 07:52 by Tanner Albarran. Read back OK. 5Result Comment: Critical Result(s) called to Jo Millard at 01/08/2018 14: 41 byHA. Read back OK. CARDIAC ENZYMES 1 2 3 Most recent to oldest [Reference Range]: 0.08 ng/mL (01/09/18 1:30 AM) 0.08 ng/mL (01/08/18 8:01 PM) 0.06 ng/mL (01/08/18 7:55 AM) Troponin-I [0.00-0.40 ng/mL] TOXICOLOGY 1 2 3 Most recent to oldest [Reference Range]: .026 % *NA* (01/08/18 7:55 AM) Etoh (%) 26 mg/dL *NA* (01/08/18 7:55 AM) Ethanol Lvl URINE AND STOOL 1 2 3 Most recent to oldest [Reference Range]: Clear (01/08/18 10:09 AM) UA Turbidity [Clear] Yellow *NA* (01/08/18 10:09 AM) UA Color [Yellow] 7.0 (01/08/18 10:09 AM) UA pH [5.0-8.0] 1.017 (01/08/18 10:09 AM) UA Spec Grav [<=1.030] 150 mg/dL *ABN* (01/08/18 10:09 AM) UA Glucose [Negative mg/dL] Small *ABN* (01/08/18 10:09 AM) UA Blood [Negative] Trace mg/dL *ABN* (01/08/18 10:09 AM) UA Ketones [Negative mg/dL] 100 mg/dL *ABN* (01/08/18 10:09 AM) UA Protein [Negative mg/dL] <=1.0 mg/dL *NA* (01/08/18 10:09 AM) UA Urobilinogen [0.1-1.0 mg/dL] Negative *NA* (01/08/18 10:09 AM) UA Bili [Negative] Negative (01/08/18 10:09 AM) UA Leuk Est [Negative] Negative (01/08/18 10:09 AM) UA Nitrite [Negative] 4 /HPF (01/08/18 10:09 AM) UA WBC [0-5 /HPF] 3 /HPF *HI* (01/08/18 10:09 AM) UA RBC [0-2 /HPF] Few /HPF *NA* (01/08/18 10:09 AM) UA Bacteria [None Seen /HPF] Occasional /LPF *NA* (01/08/18 10:09 AM) UA Sq Epi [Few /LPF] Few /LPF *NA* (01/08/18 10:09 AM) UA Mucus [None Seen /LPF] HEMATOLOGY 1 2 3 Most recent to oldest [Reference Range]: 4.8 K/CMM (01/09/18 6:15 AM) 6.5 K/CMM (01/08/18 7:55 AM) WBC [3.7-10.4 K/CMM] 4.44 M/CMM *LOW* (01/09/18 6:15 AM) 5.23 M/CMM (01/08/18 7:55 AM) RBC [4.70-6.10 M/CMM] 12.4 g/dL *LOW* (01/09/18 6:15 AM) 14.7 g/dL (01/08/18 7:55 AM) Hgb [14.0-18.0 g/dL] 37.8 % *LOW* (01/09/18 6:15 AM) 44.7 % (01/08/18 7:55 AM) Hct [42.0-54.0 %] 85.1 fL (01/09/18 6:15 AM) 85.5 fL (01/08/18 7:55 AM) MCV [80.0-94.0 fL] 27.8 pg (01/09/18 6:15 AM) 28.0 pg (01/08/18 7:55 AM) MCH [27.0-31.0 pg] 32.7 g/dL (01/09/18 6:15 AM) 32.8 g/dL (01/08/18 7:55 AM) MCHC [32.0-36.0 g/dL] 16.1 % *HI* (01/09/18 6:15 AM) 16.1 % *HI* (01/08/18 7:55 AM) RDW [11.5-14.5 %] 7.1 fL *LOW* (01/09/18 6:15 AM) 6.8 fL *LOW* (01/08/18 7:55 AM) MPV [7.4-10.4 fL] 151 K/CMM (01/09/18 6:15 AM) 189 K/CMM (01/08/18 7:55 AM) Platelet [133-450 K/CMM] 58.7 % (01/09/18 6:15 AM) 81.1 % *HI* (01/08/18 7:55 AM) Segs [45.0-75.0 %] 28.1 % (01/09/18 6:15 AM) 10.5 % *LOW* (01/08/18 7:55 AM) Lymphocytes [20.0-40.0 %] 8.6 % (01/09/18 6:15 AM) 7.2 % (01/08/18 7:55 AM) Monocytes [2.0-12.0 %] 3.6 % (01/09/18 6:15 AM) 0.3 % (01/08/18 7:55 AM) Eosinophils [0.0-4.0 %] 1.0 % (01/09/18 6:15 AM) 0.9 % (01/08/18 7:55 AM) Basophils [0.0-1.0 %] 2.8 K/CMM (01/09/18 6:15 AM) 5.2 K/CMM (01/08/18 7:55 AM) Segs-Bands # [1.5-8.1 K/CMM] 1.3 K/CMM (01/09/18 6:15 AM) 0.7 K/CMM *LOW* (01/08/18 7:55 AM) Lymphocytes # [1.0-5.5 K/CMM] 0.4 K/CMM (01/09/18 6:15 AM) 0.5 K/CMM (01/08/18 7:55 AM) Monocytes # [0.0-0.8 K/CMM] 0.2 K/CMM (01/09/18 6:15 AM) Eosinophils # [0.0-0.5 K/CMM] 0.1 K/CMM (01/08/18 7:55 AM) Basophils # [0.0-0.2 K/CMM] Immunizations Given and Recorded Vaccine Date Status [...] No entered on: 01/08/18 Assessment and Plan Extracted from: Title: Discharge Summary * Author: Sho Priest MD Date: 01/10/18 Discharge Information Disposition to home Condition stable Medications: See med reconciliation form Diet: Heart healthy Discharge Plan In the event of any worsening symptom patient was to come back to the ED for further evaluation Discharge summary to greater than 35 minutes Extracted from: Title: Clinical Document Author: Sho Priest MD Date: 01/09/18 Progress Note SUBJECTIVE: Patient seen and evaluated at bedside. No overnight events. Denies chest pain, nausea, vomiting, diarrhea, lightheadness, abdomen pain or dizziness. Reports having headache today, no evidence of any palpitations tremors or any evidence of DTs OBJECTIVE: VitalsTmp(F)[id number] 01/09 15:3098.076787/84--97--- 01/09 10:5998.946378/74--98--- 01/09 07:3097.832278/78--98--- 01/09 04:0098.331283/377240--- 01/09 00:0098.054374/810074--- 24 Hr Tmax: 99.6F (37.56c) at 01/08 20:00Vital Signs are the last 5 in the past 48 hours. I&ORecordInOutBal 06/0924hr Tot 2260 0 2260 06/0824hr Tot 3144 300 2844 Labs (Last four charted values) WBC 4.8(JAN 09)6.5(JAN 08) Hgb L 12.4(JAN 09)14.7(JAN 08) Hct L 37.8(JAN 09)44.7(JAN 08) Plt 151(JAN 09)189(JAN 08) Na 142(JAN 09)140(JAN 08) K L 3.2(JAN 09)3.5(JAN 08) CO2 28(JAN 09)26(JAN 08) Cl 107(JAN 09)102(JAN 08) Cr 0.96(JAN 09)0.95(JAN 08) BUN 9(JAN 09)10(JAN 08) Glucose Random 87(JAN 09)H 119(JAN 08) Mg L 1.6(JAN 09)L 1.7(JAN 08) Ca C 6.8(JAN 09)L 7.9(JAN 08) Troponin 0.08(JAN 09)0.08(JAN 08)0.06(JAN 08) Medications (32) Active Scheduled: (12) aspirin 81 mg ECT 81 mg 1 tab, PO, Daily beclomethasone 40 microgram/inh 8.7gm (COA) 1 puff, INHALER, BID Budesonide/Formoterol 160-4.5 microgram 6gm AERO/A inh 2 inhalation, INHALATION , BID calcium carbonate 500 mg (200 mg elemental) CHEW 500 mg 1 tab, PO, Q8H carvedilol 3.125 mg TAB 6.25 mg 2 tab, PO, BID donepezil 5 mg TAB 10 mg 2 tab, PO, Daily enoxaparin 40 mg/0.4 ml INJ 40 mg 0.4 mL, SUB-Q, [id number] montelukast 10 mg TAB 10 mg 1 tab, PO, Bedtime pantoprazole 40 mg ECT 40 mg 1 tab, PO, Before Breakfast pravastatin 20 mg TAB 40 mg 2 tab, PO, Bedtime sertraline 100 mg TAB 100 mg 1 tab, PO, Daily thiamine 100 mg TAB 100 mg 1 tab, PO, Daily Continuous: (1) sodium chloride 0.9% 1000 ml INJ 1,000 mL 1,000 mL, IV, 100 ml/hr PRN: (19) acetaminophen 325 mg TABLET 650 mg 2 tab, PO, Q4H acetaminophen-hydrocodone 325 mg-5 mg tab 1 tab, PO, Q6H chlordiazePOXIDE 25 mg CAP 25 mg 1 cap, PO, Q6H Dextrose 50% 50 ml INJ syringe 12.5 gm 25 mL, IVP, PRN Dextrose 50% 50 ml INJ syringe 25 gm 50 mL, IVP, PRN docusate sodium 100 mg CAP 100 mg 1 cap, PO, BID glucagon recombinant 1 mg PDR 1 mg, IM, PRN insulin lispro 100 unit/ml 3 ml Vial 2 unit 0.02 mL, SUB-Q, TID-Before Meals insulin lispro 100 unit/ml 3 ml Vial 4 unit 0.04 mL, SUB-Q, TID-Before Meals insulin lispro 100 unit/ml 3 ml Vial 6 unit 0.06 mL, SUB-Q, TID-Before Meals insulin lispro 100 unit/ml 3 ml Vial 8 unit 0.08 mL, SUB-Q, TID-Before Meals insulin lispro 100 unit/ml 3 ml Vial 10 unit 0.1 mL, SUB-Q, TID-Before Meals insulin lispro 100 unit/ml 3 ml Vial 1 unit 0.01 mL, SUB-Q, Bedtime insulin lispro 100 unit/ml 3 ml Vial 2 unit 0.02 mL, SUB-Q, Bedtime insulin lispro 100 unit/ml 3 ml Vial 3 unit 0.03 mL, SUB-Q, Bedtime insulin lispro 100 unit/ml 3 ml Vial 4 unit 0.04 mL, SUB-Q, Bedtime ondansetron 4 mg TAB (orally disintegrating) 4 mg 1 tab, PO, Q6H sodium chloride 0.9% 10ml sterile flush syr BD 10 mL, IVP, PRN trazodone 50 mg TAB 100 mg 2 tab, PO, Bedtime PHYSICAL EXAM: General: NAD, alert and oriented x3 HEENT: normacephalic, atraumatic, PERRLA, EOMI, supple w/ good ROM, normal pharynx Pulm: CTA B/L no w/r/r/c CV: +S1, +S2 no m/r/g, RRR, good cap refill, No JVD, no carotid bruits Abd: ND, NTTP, no rebound or guarding, BS+ Skin: intact, warm and dry, no rashes Musculoskeletal: 5/5 strength, normal range of motion, no swollen joints Neuro: alert and oriented x3, CN 2-12 intact Psychiatry: good judgment and insight Extremities: no edema, cyanosis or clubbing : no horn Chest x-ray: Negative Impression and Plan 1. Chronic alcohol abuse concerning for withdrawalsLibrium p.o. 3 times daily as needed, banana bag, thiamine, monitor for any DTs 01/09: No evidence of any DTs or alcohol withdrawals, as needed Librium 2. Hypertensionstable, continue same home medications 3. History of COPDcontinue with Symbicort, duo nebs 4. History of dementiacontinue with Aricept 5. Type 2 diabetesinsulin sliding scale, Accu-Cheks, A1c 6. ProphylaxisLovenox 7. Fluid electrolytes nutrientsbanana bag, regular diet 8. Lactic acidosisresolved, 0.9 today 9. Hypokalemia/hypocalcemiareplace 10. Dispositioninpatient Discharge planning: Plan to discharge home tomorrow if stable Extracted from: Title: General Admission H&P * Author: Sho Priest MD Date: Patient: ELMO SIDDIQUI Age: 72 years Sex: Male : 1945 Associated Diagnoses: None Author: Sho Priest MD Chief Complaint 01/08/2018 07:03 nausea and vomiting and c/o not feeling well. pt reporting being out of meds and b/p being high. hx of htn, dm. History of Present Illness 72-year-old male with history of diabetes, hyperlipidemia and chronic alcohol drinker who comes into the ED brought in by the [facility] department concerns of alcohol withdrawal. Patient reports his last drink was about 2 days ago. He typically drinks about 1 L of vodka daily not including other forms of liquor. According to the ED note patient was tremulous and had some associated nausea and vomiting including abdominal pain. Patient denies any chest pain or palpitations. Denies any recent cough congestion or any recent fever. Patient seen and evaluated at bedside on the medical floor currently doing well with no other issues. There is no evidence of any withdrawals during my exam and a banana bag. His vital signs were stable. Review of Systems Pertinent positive: Concerns of alcohol withdrawal with tremulousness Pertinent negative: Denies any chest pain palpitation nausea vomiting diarrhea dysuria hematuria frequency urgency lightheadedness dizziness abdominal pain headache shortness of breath or any other complaints The rest of 14 point review systems are reviewed with patient and are negative Health Status Allergies: Allergic Reactions (Selected) Severity Not Documented NKDA- No reactions were documented., Allergies (1) ActiveReaction NKDANone Documented Current medications: (Selected) Inpatient Medications Ordered Dextrose 50% Syringe: 12.5 gm, 25 mL, IVP, PRN, PRN: Blood Glucose Results Dextrose 50% Syringe: 25 gm, 50 mL, IVP, PRN, PRN: Blood Glucose Results Saline Flush 0.9%: 10 mL, IVP, PRN, PRN: Line Flush acetaminophen-hydrocodone 325 mg-5 mg oral tablet: 1 tab, PO, Q6H, PRN: Pain Score 4-6 acetaminophen: 650 mg, PO, Q4H, PRN: Pain 1-3/Temp > 100.4 F docusate: 100 mg, PO, BID, PRN: as needed for constipation glucagon: 1 mg, IM, PRN, PRN: Blood Glucose Results ondansetron: 4 mg, IVP, Q6H, PRN: Nausea & Vomiting Prescriptions Prescribed ALPRAZOLam 0.5 mg oral tablet: 0.5 mg, 1 tab, PO, Daily, PRN: anxiety, 30 tab, 0 Refill(s) Linzess 145 mcg oral capsule: 145 microgram, 1 cap, PO, Daily, for 90 day, 30 minutes prior to the first meal of the day, 90 cap, 1 Refill(s) OneTouch Ultra Blue Blood Glucose Test Strip: Check blood sugar once daily., MISC, Daily, 100 ea, 5 Refill(s) Pazeo ophthalmic solution: 1 drp, BOTH EYES, Daily, 3 mL, 1 Refill(s) ProAir HFA 90 mcg/inh inhalation aerosol with adapter: 2 puff, INHALER, Q6H, PRN : wheezing, coughing, or shortness of breath, 3 ea, 1 Refill(s) albuterol 0.083% inhalation solution: 2.5 mg, 3 mL, NEB, Q6H, PRN: as needed for shortness of breath and wheezing, 300 mL, 3 Refill(s) albuterol 90 mcg/inh inhalation aerosol: 1 puff, INHALATION, Q4H, PRN: for wheezing, 9 gm, 0 Refill(s) alendronate 70 mg oral tablet: 70 mg, 1 tab, PO, Q7D, with 6 to 8 ounces plain water, at least 30 minutes before first food, beverage, or medication of the day , 12 tab, 3 Refill(s) carvedilol 6.25 mg oral tablet: 6.25 mg, 1 tab, PO, BID, 180 tab, 1 Refill(s) ciclopirox topical 8% solution: 1 appl, TOP, Daily, 7 mL, 3 Refill(s) donepezil 10 mg oral tablet: 10 mg, 1 tab, PO, Daily, for 90 day, 90 tab, 1 Refill(s) fluticasone nasal 0.05 mg/inh spray: 1 spray, NASAL, Daily, 1 ea, 5 Refill(s) levocetirizine 5 mg oral tablet: 5 mg, 1 tab, PO, Bedtime, for 90 day, PRN: as needed for allergy symptoms, 90 tab, 0 Refill(s) metFORMIN 500 mg oral tablet: 500 mg, 1 tab, PO, BID-Meals, for 90 day, 180 tab , 1 Refill(s) montelukast 10 mg oral tablet: 10 mg, 1 tab, PO, Bedtime, 90 tab, 1 Refill(s) trazodone 100 mg oral tablet: 100 mg, 1 tab, PO, Bedtime, for 30 day, PRN: Insomnia, 30 tab, 0 Refill(s) Documented Medications Documented Brianna Low Dose 81 mg oral delayed release tablet: 81 mg, 1 tab, PO, Daily, 0 Refill(s) Calcium 600+D oral tablet: 1 tab, PO, BID, 0 Refill(s) Symbicort 160/4.5 inhalation aerosol with adapter: 2 puff, INHALATION, BID, 1 ea , 1 Refill(s) acitretin 25 mg oral capsule: 25 mg, 1 cap, PO, Daily, for 14 day, 14 cap, 0 Refill(s) clobetasol topical 0.05% cream: 1 appl, TOP, BID, for 14 day, 60 gm, 0 Refill(s) diclofenac sodium 1% topical cream: 0 Refill(s) fluticasone 50 mcg inhalation powder: 50 microgram, 1 ea, INHALATION, BID, 180 ea, 0 Refill(s) hydrochlorothiazide 12.5 mg oral tablet: 12.5 mg, 1 tab, PO, Daily, 90 tab, 1 Refill(s) naproxen 500 mg oral tablet: 500 mg, 1 tab, PO, BID, PRN: Pain, 30 tab, 0 Refill (s) pantoprazole 40 mg oral enteric coated tablet: 40 mg, 1 tab, PO, Daily, 90 tab, 1 Refill(s) pravastatin 40 mg oral tablet: 40 mg, 1 tab, PO, Bedtime, 90 tab, 1 Refill(s) sertraline 100 mg oral tablet: 100 mg, 1 tab, PO, Daily, 90 tab, 0 Refill(s), Medications (8) Active Scheduled: (0) Continuous: (0) PRN: (8) acetaminophen 650 mg, PO, Q4H acetaminophen-hydrocodone 1 tab, PO, Q6H Dextrose 50% 50 ml INJ syringe 12.5 gm 25 mL, IVP, PRN Dextrose 50% 50 ml INJ syringe 25 gm 50 mL, IVP, PRN docusate 100 mg, PO, BID glucagon recombinant 1 mg PDR 1 mg, IM, PRN ondansetron 4 mg, IVP, Q6H sodium chloride 0.9% 10ml sterile flush syr BD 10 mL, IVP, PRN Problem list: All Problems Allergic rhinitis / SNOMED CT 700574223 / Confirmed Benign essential hypertension / SNOMED CT 7730527 / Confirmed Benign prostatic hyperplasia / SNOMED CT 848909993 / Confirmed Bilateral chronic knee pain / SNOMED CT 84936554 / Confirmed Bilateral shoulder pain / SNOMED CT 29748031 / Confirmed CPAP (continuous positive airway pressure) dependence / SNOMED CT 2339778084 / Confirmed Dementia / SNOMED CT 99045860 / Confirmed Elevated TSH / SNOMED CT 860822835 / Confirmed BETHANY (generalized anxiety disorder) / SNOMED CT 20291068 / Confirmed GERD (gastroesophageal reflux disease) / SNOMED CT 849117256 / Confirmed Insomnia / SNOMED CT 575419010 / Confirmed Mixed hyperlipidemia / SNOMED CT 778877231 / Confirmed Osteoporosis / SNOMED CT 057196327 / Confirmed Persistent cough / SNOMED CT 906460124 / Confirmed Polyarthralgia / SNOMED CT 216812095 / Confirmed S/P TKR (total knee replacement) / SNOMED CT 0118623473 / Confirmed Sleep apnea / SNOMED CT 995244032 / Confirmed Type 2 diabetes mellitus without complications / SNOMED CT 102956381 / Confirmed Unsteady gait / SNOMED CT 617120198 / Confirmed, Active Problems (19) Allergic rhinitis Benign essential hypertension Benign prostatic hyperplasia Bilateral chronic knee pain Bilateral shoulder pain CPAP (continuous positive airway pressure) dependence Dementia Elevated TSH BETHANY (generalized anxiety disorder) GERD (gastroesophageal reflux disease) Insomnia Mixed hyperlipidemia Osteoporosis Persistent cough Polyarthralgia S/P TKR (total knee replacement) Sleep apnea Type 2 diabetes mellitus without complications Unsteady gait Histories Family History: Cancer of bone.. Mother Cancer of cervix.. Sister Procedure history: Examination of eye ([id number]) on 08/28/2017 at 72 Years. Comments: 09/01/2017 07:34 - Khushbu Olmstead MD, DR Total replacement of right knee joint ([id number]) in 2012 at 68 Years. Reduction of fracture of upper arm with internal fixation ([id number]) in 2013 at 68 Years. Comments: 09/02/2017 21:17 - Edyta Casas MD left forearm Replacement of right knee joint ([id number]). Social History Social & Psychosocial Habits Alcohol 09/02/2017 Use: Past Type: Beer, Liquor Employment/School 09/02/2017 Status: Retired Other: Lives by himself at a senior community. Residence is tailored to needs of elderly. Has a care provider for 3 hours daily. Occasionally uses a cane/ walker with gait. Exercise 09/02/2017 Exercise type: none Substance Abuse 09/02/2017 Use: None Tobacco 12/08/2017 Use: Former smoker Type: Cigarettes Exposure to Tobacco Smoke None Cigarette Smoking Last 365 Days No Reg Smoking Cessation Counseling No 01/08/2018 Use: Never smoker Exposure to Tobacco Smoke None Cigarette Smoking Last 365 Days No Reg Smoking Cessation Counseling No . Past medical history: Diabetes, hyperlipidemia, chronic alcohol abuse, history of seizures Physical Examination VS/Measurements Vital Signs (last 24 hrs) Last Charted Temp Oral98.3 DegF (JAN 08 07:03) Heart Rate Vlyxot41 bpm (JAN 08 08:55) Resp Rate 20 BRMIN (JAN 08 08:55) RGP664 mmHg (JAN 08 08:55) DBP73 mmHg (JAN 08 08:55) CvW864 % (JAN 08 08:55) Hwmrys13.364 kg (JAN 08:03) Mblthl703.56 cm (JAN 08:03) BMI32.68 (JAN 08 07:03) Intake and Output I/O Intake OutputBalance 01/08/20187a-3p 1222.00 0.00 1222.00 3p-11p 1472.00 0.00 1472.00As of 19:45 11p-7a 0.00 0.00 0.00 Totals 2694.00 0.00 2694.00 01/07/20187a-3p 0.00 0.00 0.00 3p-11p 0.00 0.00 0.00 11p-7a 0.00 0.00 0.00 Totals 0.00 0.00 0.00 01/06/20187a-3p 0.00 0.00 0.00 3p-11p 0.00 0.00 0.00 11p-7a 0.00 0.00 0.00 Totals 0.00 0.00 0.00 General: Alert and oriented, No acute distress. Eye: Pupils are equal, round and reactive to light, Extraocular movements are intact, Normal conjunctiva. HENT: Normocephalic, Oral mucosa is moist. Neck: Supple, Non-tender, No jugular venous distention. Respiratory: Lungs are clear to auscultation, Respirations are non-labored. Cardiovascular: Normal rate, Regular rhythm, No murmur. Gastrointestinal: Soft, Non-tender, Non-distended, Normal bowel sounds. Genitourinary: No costovertebral angle tenderness. Musculoskeletal Normal range of motion. Normal strength. Integumentary: Warm, Dry. Neurologic: Alert, Oriented. Cognition and Speech: Oriented, Speech clear and coherent. Psychiatric: Cooperative, Appropriate mood & affect. Review / Management Results review: Labs (Last four charted values) WBC 6.5(JAN 08) Hgb 14.7(JAN 08) Hct 44.7(JAN 08) Plt 189(JAN 08) Na 140(JAN 08) K 3.5(JAN 08) CO2 26(JAN 08) Cl 102(JAN 08) Cr 0.95(JAN 08) BUN 10(JAN 08) Glucose Random H 119(JAN 08) Mg L 1.7(JAN 08) Ca L 7.9(JAN 08) Troponin 0.06(JAN 08). Chest x-ray: Negative Impression and Plan 1. Chronic alcohol abuse concerning for withdrawalsLibrium p.o. 3 times daily as needed, banana bag, thiamine, monitor for any DTs 2. Hypertensionstable, continue same home medications 3. History of COPDcontinue with Symbicort, duo nebs 4. History of dementiacontinue with Aricept 5. Type 2 diabetesinsulin/scale, Accu-Cheks, A1c 6. ProphylaxisLovenox 7. Fluid electrolytes nutrientsbanana bag, regular diet 8. Dispositioninpatient Addendum Lactic acidosis of unknown etiology continue with IV fluids for now, repeat in the by magda Priest MD on 01/08/2018 19:49
--- OUTSIDE RECORDS SUMMARY | 2018-05-06 00:45 | XMS REPORT | Summary of Care ---
Author Author [facility] Organization [facility] Address Unknown Phone Unavailable Encounter HQ Kimani(FIN) [id number] Date(s): 12/07/17 - 12/08/17 [facility] [address] [place] [address]- [phone] Encounter Diagnosis Chest pain in adult (Discharge Diagnosis) - 12/08/17 Cough (Discharge Diagnosis) - 12/08/17 Throat pain in adult (Discharge Diagnosis) - 12/08/17 Discharge Disposition: Home or Self Care Attending Physician: Zhou Yu MD Vital Signs 1 2 3 Most recent to oldest [Reference Range]: 98.4 DegF (12/08/17 12:30 AM) 98.6 DegF (12/07/17 9:35 PM) Temperature Oral [96.4-99.1 DegF] 157/65 mmHg *HI* (12/08/17 1:30 AM) 149/74 mmHg *HI* (12/08/17 12:30 AM) 163/86 mmHg *HI* (12/07/17 9:35 PM) Blood Pressure [90-140/60-90 mmHg] 18 BRMIN (12/08/17 1:30 AM) 17 BRMIN (12/08/17 12:44 AM) 16 BRMIN (12/08/17 12:38 AM) Respiratory Rate [14-20 BRMIN] 74 bpm (12/08/17 1:30 AM) 67 bpm (12/07/17 9:35 PM) Peripheral Pulse Rate [60-100 bpm] Problem List Condition Effective Dates Status Health [...] Substance Reaction Severity Status NKDA Active Medications albuterol 90 mcg/inh inhalation aerosol 1 puff, INHALATION, Q4H, PRN for wheezing, # 9 gm, 0 Refill(s) Start Date: 12/08/17 Status: Ordered Azithromycin 5 Day Dose Pack 250 mg oral tablet See Instructions, Take 2 tablets by mouth the first day then 1 tablet by mouth days 2-5., X 5 day, # 6 tab, 0 Refill(s) Start Date: 12/08/17 Stop Date: 12/13/17 Status: Ordered Saline Flush 0.9% 10 mL, Route: IVP, Drug Form: INJ, Dosing Weight 85, kg, PRN, PRN Line Flush, Start date: 12/07/17 21:43:00 CDT, Duration: 30 day, Stop date: 01/06/18 21:42: 00 CDT Notes: (Same as: BD Posiflush) Start Date: 12/07/17 Stop Date: 12/08/17 Status: Discontinued Tessalon Perles 100 mg oral capsule 100 mg=1 cap, PO, Q8H, PRN cough, do not crush or chew, X 10 day, # 20 cap, 0 Refill(s) Start Date: 12/08/17 Stop Date: 12/18/17 Status: Ordered Results ELECTROLYTES Most recent to 1 oldest [Reference Range]: Sodium Lvl [135-145 140 mEq/L mEq/L] (12/07/17 10:50 PM) Potassium Lvl 3.8 mEq/L [3.5-5.1 mEq/L] (12/07/17 10:50 PM) Chloride Lvl [95-109 101 mEq/L mEq/L] (12/07/17 10:50 PM) CO2 [24-32 mEq/L] 30 mEq/L (12/07/17 10:50 PM) AGAP [10.0-20.0 12.8 mEq/L mEq/L] (12/07/17 10:50 PM) CHEM PANEL Most recent to 1 oldest [Reference Range]: Creatinine Lvl 1.07 mg/dL [0.50-1.40 mg/dL] (12/07/17 10:50 PM) eGFR 68 mL/min/1.73m2 1 *NA* (12/07/17 10:50 PM) BUN [7-22 mg/dL] 12 mg/dL (12/07/17 10:50 PM) B/C Ratio [6-25] 11 (12/07/17 10:50 PM) Glucose Lvl [70-99 119 mg/dL mg/dL] *HI* (12/07/17 10:50 PM) Total Protein 7.4 g/dL [6.4-8.4 g/dL] (12/07/17 10:50 PM) Albumin Lvl [3.5-5.0 3.7 g/dL g/dL] (12/07/17 10:50 PM) Globulin [2.7-4.2 3.7 g/dL g/dL] (12/07/17 10:50 PM) A/G Ratio [0.7-1.6] 1.0 (12/07/17 10:50 PM) Calcium Lvl 8.8 mg/dL [8.5-10.5 mg/dL] (12/07/17 10:50 PM) Phosphorus [2.5-4.5 2.4 mg/dL mg/dL] *LOW* (12/07/17 10:50 PM) Magnesium Lvl 2.0 mg/dL [1.8-2.4 mg/dL] (12/07/17 10:50 PM) ALT [0-65 unit/L] 34 unit/L (12/07/17 10:50 PM) AST [0-37 unit/L] 24 unit/L (12/07/17 10:50 PM) Alk Phos [39-136 75 unit/L unit/L] (12/07/17 10:50 PM) Bili Total [0.2-1.3 0.3 mg/dL mg/dL] (12/07/17 10:50 PM) 1Result Comment: The eGFR is calculated using [...] should be multiplied by the estimated BMI. CARDIAC ENZYMES Most recent to 1 oldest [Reference Range]: Total CK [12-191 85 unit/L unit/L] (12/07/17 10:50 PM) CK MB [0.5-3.6 <1.0 ng/mL ng/mL] (12/07/17 10:50 PM) CK MB Index <1.2 [0.0-2.5] (12/07/17 10:50 PM) Troponin-I <0.02 ng/mL [0.00-0.40 ng/mL] (12/07/17 10:50 PM) BNP [<=100 pg/mL] 36 pg/mL (12/07/17 10:50 PM) HEMATOLOGY Most recent to 1 oldest [Reference Range]: WBC [3.7-10.4 K/CMM] 4.8 K/CMM (12/07/17 10:50 PM) RBC [4.70-6.10 4.58 M/CMM M/CMM] *LOW* (12/07/17 10:50 PM) Hgb [14.0-18.0 g/dL] 13.6 g/dL *LOW* (12/07/17 10:50 PM) Hct [42.0-54.0 %] 40.8 % *LOW* (12/07/17 10:50 PM) MCV [80.0-94.0 fL] 89.1 fL (12/07/17 10:50 PM) MCH [27.0-31.0 pg] 29.7 pg (12/07/17 10:50 PM) MCHC [32.0-36.0 33.4 g/dL g/dL] (12/07/17 10:50 PM) RDW [11.5-14.5 %] 15.4 % *HI* (12/07/17 10:50 PM) MPV [7.4-10.4 fL] 7.3 fL *LOW* (12/07/17 10:50 PM) Platelet [133-450 196 K/CMM K/CMM] (12/07/17 10:50 PM) Segs [45.0-75.0 %] 52.0 % (12/07/17 10:50 PM) Lymphocytes 33.1 % [20.0-40.0 %] (12/07/17 10:50 PM) Monocytes [2.0-12.0 10.0 % %] (12/07/17 10:50 PM) Eosinophils [0.0-4.0 3.9 % %] (12/07/17 10:50 PM) Basophils [0.0-1.0 1.0 % %] (12/07/17 10:50 PM) Segs-Bands # 2.5 K/CMM [1.5-8.1 K/CMM] (12/07/17 10:50 PM) Lymphocytes # 1.6 K/CMM [1.0-5.5 K/CMM] (12/07/17 10:50 PM) Monocytes # [0.0-0.8 0.5 K/CMM K/CMM] (12/07/17 10:50 PM) Eosinophils # 0.2 K/CMM [0.0-0.5 K/CMM] (12/07/17 10:50 PM) PT [12.0-14.7 12.5 seconds seconds] (12/07/17 10:50 PM) INR [0.85-1.17] 0.93 (12/07/17 10:50 PM) PTT [22.9-35.8 34.4 seconds seconds] (12/07/17 10:50 PM) Immunizations Given and Recorded Vaccine Date Status [...]
--- OUTSIDE RECORDS SUMMARY | 2018-05-06 00:45 | XMS REPORT | Summary of Care ---
Author Author [facility] [place] Organization [facility] Address Unknown Phone Unavailable Encounter HQ Rachael_ursula(FIN) [id number] Date(s): 10/09/17 - 10/10/17 [facility] [address], [address] [place] [address]- [phone] Vital Signs No data available for this [...] Substance Reaction Severity Status NKDA Active Medications Linzess 145 mcg oral capsule 145 microgram=1 cap, PO, Daily, 30 minutes prior to the first meal of the day, # 90 cap, 1 Refill(s), Pharmacy: [id number] Start Date: 10/09/17 Stop Date: 04/07/18 Status: Ordered Results No data available for [...]
--- OUTSIDE RECORDS SUMMARY | 2018-05-06 00:45 | XMS REPORT | Summary of Care ---
Author Author [facility] Organization [facility] Address Unknown Phone Unavailable Encounter HQ Kimani(FIN) [id number] Date(s): 10/09/17 - 10/10/17 [facility] [address], [address] [place] [address]- [phone] Vital Signs No data available for this [...] Substance Reaction Severity Status NKDA Active Medications carvedilol 6.25 mg oral tablet 6.25 mg=1 tab, PO, BID, # 180 tab, 1 Refill(s), Pharmacy: [id number] Start Date: 10/09/17 Status: Ordered montelukast 10 mg oral tablet 10 mg=1 tab, PO, Bedtime, # 90 tab, 1 Refill(s), Pharmacy: [id number] Start Date: 10/09/17 Status: Ordered Results No data available for [...]
--- OUTSIDE RECORDS SUMMARY | 2018-05-06 00:45 | XMS REPORT | Summary of Care ---
Author Author [facility] Organization [facility] Address Unknown Phone Unavailable Encounter HQ Kimani(FIN) [phone] Date(s): 10/06/17 - 10/06/17 [facility] [address] [place] [address]- Encounter Diagnosis Cough (Final) - 10/11/17 Discharge [...]
--- OUTSIDE RECORDS SUMMARY | 2018-05-06 00:45 | XMS REPORT | Summary of Care ---
Author Author [facility] Care [facility] Organization [facility] Address Unknown Phone Unavailable Encounter NAILA Harman(FIN) [id number] Date(s): 10/23/17 - 10/24/17 [facility] [address], [address] [place] [address]- [phone] Vital Signs No data available for this [...] Substance Reaction Severity Status NKDA Active Medications fluticasone nasal 0.05 mg/inh spray 1 spray, NASAL, Daily, # 1 ea, 5 Refill(s), Pharmacy: [id number] Start Date: 10/24/17 Status: Ordered Results No data available for [...]
--- OUTSIDE RECORDS SUMMARY | 2018-05-06 00:45 | XMS REPORT | Summary of Care ---
Author Author [facility] Organization [facility] Address Unknown Phone Unavailable Encounter HQ Kimani(FIN) [id number] Date(s): 10/26/17 - 10/26/17 [facility] [address] [place] [address]- Encounter Diagnosis Obstructive sleep apnea (adult) (pediatric) (Final) - 11/09/17 Discharge Disposition: Home or Self Care Attending Physician: Tiana Odell MD Admitting Physician: Tiana Odell MD Referring Physician: Tiana Odell MD Vital Signs No [...] Replacement of right knee joint Completed 1DR Jayoln 2left forearm Social History Social History Type [...]
--- OUTSIDE RECORDS SUMMARY | 2018-05-06 00:45 | XMS REPORT | Summary of Care ---
Author Author [facility] Organization [facility] Address Unknown Phone Unavailable Encounter NAILA Harman(FIN) [id number] Date(s): 10/26/17 - 10/26/17 [facility] [address], [address] [place] [address]- [phone] Discharge Disposition: Home or Self Care Attending Physician: Edyta Casas MD Vital Signs Most recent to 1 oldest [Reference Range]: Height 157.48 cm (10/26/17 9:05 AM) Weight 85 kg (10/26/17 9:05 AM) Body Mass Index 34.27 m2 (10/26/17 9:05 AM) Problem List Condition Effective Dates Status Health [...] Reaction Severity Status NKDA Active Medications No Known Medications Results No data available for this section [...]
--- OUTSIDE RECORDS SUMMARY | 2018-05-06 00:45 | XMS REPORT | Summary of Care ---
Author Author [facility] Care [facility] Organization [facility] Address Unknown Phone Unavailable Encounter HQ Rachael_ursula(FIN) [id number] Date(s): 01/21/18 - 01/21/18 [facility] [address], [address] [place] [address]- [phone] Attending Physician: Edyta Casas MD Vital Signs No [...]
--- OUTSIDE RECORDS SUMMARY | 2018-05-06 00:46 | XMS REPORT | Summary of Care ---
Author Author [facility] Organization [facility] Address Unknown Phone Unavailable Encounter NAILA Harman(BRITNEY) [id number] Date(s): 09/02/15 - 09/02/15 [facility] [address] [place] [address]- [phone] Discharge Diagnosis: Abdominal pain, suprapubic Discharge Disposition: Home Attending Physician: Jeferson Barros MD Vital Signs 1 2 3 Most recent to oldest [Reference Range]: 157.48 cm (09/02/15 5:01 AM) Height 97.7 DegF (09/02/15 9:56 AM) 98.2 DegF (09/02/15 5:01 AM) Temperature Oral [96.4-99.1 DegF] 102/72 mmHg (09/02/15 10:50 AM) 119/63 mmHg (09/02/15 9:56 AM) 111/70 mmHg (09/02/15 9:21 AM) Blood Pressure [90-140/60-90 mmHg] 13 BRMIN *LOW* (09/02/15 10:50 AM) 13 BRMIN *LOW* (09/02/15 9:56 AM) 21 BRMIN *HI* (09/02/15 9:21 AM) Respiratory Rate [14-20 BRMIN] 68 bpm (09/02/15 5:01 AM) Peripheral Pulse Rate [60-100 bpm] 84.091 kg (09/02/15 5:01 AM) Weight 33.91 m2 (09/02/15 5:01 AM) Body Mass Index Problem List Condition Effective Dates Status Health Status Informant Anxiety disorder1 11/10/13 Active Benign essential 11/10/13 Active hypertension2 Benign prostatic 11/10/13 Active hyperplasia3 Body mass index 30+ 11/10/13 Active - obesity4 Cough5 11/10/13 Active Gastroesophageal 11/10/13 Active reflux disease6 Hyperlipidemia7 11/10/13 Active Hypertension(Confirm Resolved ed) Insomnia8 11/10/13 Active Osteoporosis9 11/10/13 Active 1Data migrated from [employer] on 01/02/15. 2Data migrated from [employer] on 01/02/15. 3Data migrated from [employer] on 01/02/15. 4Data migrated from [employer] on 01/02/15. 5Data migrated from [employer] on 01/02/15. 6Data migrated from [employer] on 01/02/15. 7Data migrated from [employer] on 01/02/15. 8Data migrated from [employer] on 01/02/15. 9Data migrated from [employer] on 01/02/15. Allergies, Adverse Reactions, Alerts Substance Reaction Severity Status NKDA Active Medications GI cocktail 30 mL, Route: PO, Dosing Weight 84.091, kg, ONCE, STAT, Start date: 09/02/15 5: 56:00, Stop date: 09/02/15 5:56:00 Start Date: 09/02/15 Stop Date: 09/02/15 Status: Completed NS (Bolus) IV 1,000 mL, 1,000 ml/hr, Infuse Over: 1 hr, Route: IV, 1,000, Drug form: INJ, ONCE , Priority: STAT, Dosing Weight 84.091 kg, Start date: 09/02/15 10:12:00, Duration: 1 doses or times, Stop date: 09/02/15 10:12:00 Start Date: 09/02/15 Stop Date: 09/02/15 Status: Discontinued ondansetron 4 mg, Route: IVP, ONCE, Dosing Weight 84.091, kg, Priority: STAT, Start date: 5:56:00, Stop date: 09/02/15 5:56:00 Start Date: 09/02/15 Stop Date: 09/02/15 Status: Completed Saline Flush 0.9% 10 mL, Route: IVP, Drug Form: INJ, Dosing Weight 84.091, kg, PRN, PRN Line Flush , Start date: 09/02/15 5:56:00, Duration: 30 day, Stop date: 10/02/15 5:55:00 Notes: (Same as: BD Posiflush) Start Date: 09/02/15 Stop Date: 09/02/15 Status: Discontinued Results ELECTROLYTES Most recent to 1 oldest [Reference Range]: Sodium Lvl [135-145 134 mEq/L mEq/L] *LOW* (09/02/15 6:31 AM) Potassium Lvl 3.6 mEq/L [3.5-5.1 mEq/L] (09/02/15 6:31 AM) Chloride Lvl [95-109 100 mEq/L mEq/L] (09/02/15 6:31 AM) CO2 [24-32 mEq/L] 27 mEq/L (09/02/15 6:31 AM) AGAP [10.0-20.0 10.6 mEq/L mEq/L] (09/02/15 6:31 AM) CHEM PANEL Most recent to 1 oldest [Reference Range]: Creatinine Lvl 1.61 mg/dL [0.50-1.40 mg/dL] *HI* (09/02/15 6:31 AM) eGFR 42 mL/min/1.73m2 1 *NA* (09/02/15 6:31 AM) BUN [7-22 mg/dL] 16 mg/dL (09/02/15 6:31 AM) B/C Ratio [6-25] 10 (09/02/15 6:31 AM) Glucose Lvl [70-99 100 mg/dL mg/dL] *HI* (09/02/15 6:31 AM) Total Protein 6.6 g/dL [6.4-8.4 g/dL] (09/02/15 6:31 AM) Albumin Lvl [3.5-5.0 3.6 g/dL g/dL] (09/02/15 6:31 AM) Globulin [2.0-4.0 3.0 g/dL g/dL] (09/02/15 6:31 AM) A/G Ratio [0.7-1.6] 1.2 (09/02/15 6:31 AM) Calcium Lvl 7.9 mg/dL [8.5-10.5 mg/dL] *LOW* (09/02/15 6:31 AM) ALT [0-65 unit/L] 37 unit/L (09/02/15 6:31 AM) AST [0-37 unit/L] 32 unit/L (09/02/15 6:31 AM) Alk Phos [39-136 71 unit/L unit/L] (09/02/15 6:31 AM) Bili Total [0.2-1.3 0.3 mg/dL mg/dL] (09/02/15 6:31 AM) Lipase Lvl [73-393 101 unit/L unit/L] (09/02/15 6:31 AM) 1Result Comment: The eGFR is calculated using [...] Most recent to 1 oldest [Reference Range]: Troponin-I <0.02 ng/mL [0.00-0.40 ng/mL] (09/02/15 6:31 AM) URINE AND STOOL Most recent to 1 oldest [Reference Range]: UA Turbidity [Clear] Clear (09/02/15 6:31 AM) UA Color Ltyellow *NA* (09/02/15 6:31 AM) UA pH [5.0-8.0] 7.0 (09/02/15 6:31 AM) UA Spec Grav 1.011 [<=1.030] (09/02/15 6:31 AM) UA Glucose [Negative Negative mg/dL mg/dL] *NA* (09/02/15 6:31 AM) UA Blood [Negative] Negative (09/02/15 6:31 AM) UA Ketones [Negative Negative mg/dL mg/dL] *NA* (09/02/15 6:31 AM) UA Protein [Negative Negative mg/dL mg/dL] (09/02/15 6:31 AM) UA Urobilinogen <=1.0 mg/dL [0.1-1.0 mg/dL] *NA* (09/02/15 6:31 AM) UA Bili [Negative] Negative *NA* (09/02/15 6:31 AM) UA Leuk Est Negative [Negative] (09/02/15 6:31 AM) UA Nitrite Negative [Negative] (09/02/15 6:31 AM) UA WBC [0-5 /HPF] <1 /HPF (09/02/15 6:31 AM) UA RBC [0-2 /HPF] <1 /HPF (09/02/15 6:31 AM) UA Sq Epi None Seen *NA* (09/02/15 6:31 AM) HEMATOLOGY Most recent to 1 oldest [Reference Range]: WBC [3.7-10.4 K/CMM] 3.8 K/CMM (09/02/15 6:31 AM) RBC [4.70-6.10 4.54 M/CMM M/CMM] *LOW* (09/02/15 6:31 AM) Hgb [14.0-18.0 g/dL] 13.6 g/dL *LOW* (09/02/15 6:31 AM) Hct [42.0-54.0 %] 41.8 % *LOW* (09/02/15 6:31 AM) MCV [80.0-94.0 fL] 92.0 fL (09/02/15 6:31 AM) MCH [27.0-31.0 pg] 30.1 pg (09/02/15 6:31 AM) MCHC [32.0-36.0 32.7 g/dL g/dL] (09/02/15 6:31 AM) RDW [11.5-14.5 %] 15.7 % *HI* (09/02/15 6:31 AM) Platelet [133-450 185 K/CMM K/CMM] (09/02/15 6:31 AM) MPV [7.4-10.4 fL] 7.1 fL *LOW* (09/02/15 6:31 AM) Segs [45.0-75.0 %] 48.4 % (09/02/15 6:31 AM) Lymphocytes 35.9 % [20.0-40.0 %] (09/02/15 6:31 AM) Monocytes [2.0-12.0 9.7 % %] (09/02/15 6:31 AM) Eosinophils [0.0-4.0 4.8 % %] *HI* (09/02/15 6:31 AM) Basophils [0.0-1.0 1.2 % %] *HI* (09/02/15 6:31 AM) Segs-Bands # 1.9 K/CMM [1.5-8.1 K/CMM] (09/02/15 6:31 AM) Lymphocytes # 1.4 K/CMM [1.0-5.5 K/CMM] (09/02/15 6:31 AM) Monocytes # [0.0-0.8 0.4 K/CMM K/CMM] (09/02/15 6:31 AM) Eosinophils # 0.2 K/CMM [0.0-0.5 K/CMM] (09/02/15 6:31 AM) Immunizations No data available for this section Procedures Procedure Date Related Diagnosis Body Site Knee replacement Social History Social History Type Response Smoking Status Never smoker; Exposure to Tobacco Smoke None; Cigarette Smoking Last 365 Days No; Reg Smoking Cessation Counseling No Assessment and Plan No data available for this section
--- OUTSIDE RECORDS SUMMARY | 2018-05-06 00:46 | XMS REPORT | Summary of Care ---
Author Author [facility] Organization [facility] Address Unknown Phone Unavailable Encounter NAILA Harman(BRITNEY) [id number] Date(s): 08/16/15 - 08/16/15 [facility] [address] Discharge Disposition: Home Attending Physician: Joel Mejía MD Referring Physician: Joel Mejía MD Vital Signs Most recent to 1 oldest [Reference Range]: Height 157.48 cm (08/16/15 9:31 AM) Weight 84.091 kg (08/16/15 9:31 AM) Body Mass Index 33.91 m2 (08/16/15 9:31 AM) Problem List Condition Effective Dates Status Health Status Informant Anxiety disorder1 11/10/13 Active Benign essential 11/10/13 Active hypertension2 Benign prostatic 11/10/13 Active hyperplasia3 Body mass index 30+ 11/10/13 Active - obesity4 Cough5 11/10/13 Active Gastroesophageal 11/10/13 Active reflux disease6 Hyperlipidemia7 11/10/13 Active Insomnia8 11/10/13 Active Osteoporosis9 11/10/13 Active 1Data [...] Centricity on 01/02/15. Allergies, Adverse Reactions, Alerts No data available for this section Medications No data available for this section Results No data available for this section Immunizations No data available for this section Procedures No data available for this section Social History No data available for this section Assessment and Plan No data available for this section
--- OUTSIDE RECORDS SUMMARY | 2018-05-06 00:46 | XMS REPORT | Summary of Care ---
Author Author [facility] Care [facility] Organization [facility] Address Unknown Phone Unavailable Encounter HQ Isakr_ursula(FIN) [id number] Date(s): 11/09/17 - 11/10/17 [facility] [address], [address] [place] [address]- [phone] Vital Signs No data available for this [...]
--- OUTSIDE RECORDS SUMMARY | 2018-05-06 00:46 | XMS REPORT | Summary of Care ---
Author Author [facility] Primary [facility] Organization [facility] Address Unknown Phone Unavailable Encounter HQ Kimani(FIN) [id number] Date(s): 11/11/17 - 11/12/17 [facility] [address], [address] [place] [address]- [phone] Vital Signs No data available for this [...] day, # 12 tab, 3 Refill(s), Pharmacy: [id number] Start Date: 11/11/17 Status: Ordered ProAir HFA 90 mcg/inh inhalation aerosol with adapter 2 puff, INHALER, Q6H, PRN wheezing, coughing, or shortness of breath, # 3 ea, 1 Refill(s), Pharmacy: [id number] Start Date: 11/11/17 Status: Ordered Results [...]
--- OUTSIDE RECORDS SUMMARY | 2018-05-06 00:46 | XMS REPORT | Summary of Care ---
Author Author [facility] Care [facility] Organization [facility] Address Unknown Phone Unavailable Encounter HQ Isakr_ursula(FIN) [id number] Date(s): 10/30/17 - 10/31/17 [facility] [address], [address] [place] [address]- [phone] Vital Signs No data available for this [...]
--- OUTSIDE RECORDS SUMMARY | 2018-05-06 00:46 | XMS REPORT ---
Author Author [facility] Address Unknown Phone Unavailable Care Team Providers Care Trauma Program Manager Name Role Phone JAIME DELEON Unavailable Unavailable Problems This patient has no known problems. Allergies, Adverse Reactions, Alerts This patient has no known allergies or adverse reactions. Medications This patient has no known medications. Results Test Description Test Time Test Comments Text Results Atomic Results Result Comments CHEST 2 VIEWS 2018-03-10 13:53:00 [place] [address] Patient Name: ELMO SIDDIQUI MR #: [id number] : 1945 Age/Sex: 72/M Req #: [id number] Adm Physician: Ordered by: NICKI LANTIGUA MD Report #: [id number] Location: OR Room/Bed: Procedure: [id number] DX/CHEST 2 VIEWS Exam Date: 03/10/18 Exam Time: 1325 REPORT STATUS: Signed PROCEDURE: Frontal and lateral views of the chest. COMPARISON: None. INDICATIONS: PREOPERATIVE CHEST XRAY FOR UROLOGY SURGERY FINDINGS: Lines/tubes: None. Lungs: The lungs are well inflated and clear. There is no evidence of pneumonia or pulmonary edema. Pleura: There is no pleural effusion or pneumothorax. Heart and mediastinum: The heart and the mediastinum are normal. Bones: No acute bony abnormality. Degenerative changes of the thoracic spine. IMPRESSION: No acute cardiopulmonary disease. Dictated by: Gianfranco Arce M.D. on 03/10/2018 at 13:53 Electronically approved by: Gianfranco Arce M.D. on 03/10/2018 at 13:53 Dictated By: GIANFRANCO ARCE MD [id number] Transcribed By: JOHANN on 03/10/18 1353 COPY TO: NICKI LANTIGUA III
--- OUTSIDE RECORDS SUMMARY | 2018-05-06 00:46 | XMS REPORT | Summary of Care ---
Author Author [facility] [place] Organization [facility] [place] Address Unknown Phone Unavailable Encounter NAILA Harman(BRITNEY) [id number] Date(s): 12/29/15 - 12/29/15 [facility] [place] [address] [place], [place] [address]- [phone] Discharge Disposition: Home Attending Physician: Gregg Smith MD Vital Signs No data available for [...]
--- OUTSIDE RECORDS SUMMARY | 2018-05-06 00:46 | XMS REPORT | Summary of Care ---
Author Author [facility] Organization [facility] Address Unknown Phone Unavailable Encounter HQ Isakr_ursula(BRITNEY) [id number] Date(s): 01/01/16 - 01/01/16 [facility] [address] Discharge Disposition: Home Attending Physician: Gregg Smith MD Referring Physician: Gregg Smith MD Vital Signs No [...]
--- OUTSIDE RECORDS SUMMARY | 2018-05-06 00:46 | XMS REPORT | Summary of Care ---
Author Author [facility] Organization [facility] Address Unknown Phone Unavailable Encounter NAILA Harman(BRITNEY) [id number] Date(s): 06/20/16 - 06/20/16 [facility] [address] [place] [address]- Discharge Diagnosis: Hematuria Discharge Disposition: Home or Self Care Attending Physician: Allan Boles MD Vital Signs Most recent to 1 2 oldest [Reference Range]: Height 154.94 cm (06/20/16 3:13 PM) Temperature Oral 98 DegF 98.5 DegF [96.4-99.1 DegF] (06/20/16 7:10 PM) (06/20/16 3:13 PM) Blood Pressure 163/85 mmHg 171/94 mmHg [90-140/60-90 mmHg] *HI* *HI* (06/20/16 7:10 PM) (06/20/16 3:13 PM) Respiratory Rate 18 BRMIN 16 BRMIN [14-20 BRMIN] (06/20/16 7:10 PM) (06/20/16 3:13 PM) Peripheral Pulse 70 bpm 69 bpm Rate [60-100 bpm] (06/20/16 7:10 PM) (06/20/16 3:13 PM) Weight 86.364 kg (06/20/16 3:13 PM) Body Mass Index 35.98 m2 (06/20/16 3:13 PM) Problem List Condition Effective Dates Status Health Status Informant Anxiety disorder1 11/10/13 Active Benign essential 11/10/13 Active hypertension2 Benign prostatic 11/10/13 Active hyperplasia3 Body mass index 30+ 11/10/13 Active - obesity4 Cough5 11/10/13 Active Gastroesophageal 11/10/13 Active reflux disease6 Hyperlipidemia7 11/10/13 Active Hypertension(Confirm Resolved ed) Insomnia8 11/10/13 Active Osteoporosis9 11/10/13 Active Enlarged Resolved prostate(Confirmed) 1Data migrated from [employer] on 01/02/15. [...] No data available for this section Results ELECTROLYTES Most recent to 1 oldest [Reference Range]: Sodium Lvl [135-145 141 mEq/L mEq/L] (06/20/16 4:46 PM) Potassium Lvl 3.7 mEq/L [3.5-5.1 mEq/L] (06/20/16 4:46 PM) Chloride Lvl [95-109 103 mEq/L mEq/L] (06/20/16 4:46 PM) CO2 [24-32 mEq/L] 31 mEq/L (06/20/16 4:46 PM) AGAP [10.0-20.0 10.7 mEq/L mEq/L] (06/20/16 4:46 PM) CHEM PANEL Most recent to 1 oldest [Reference Range]: Creatinine Lvl 1.20 mg/dL [0.50-1.40 mg/dL] (06/20/16 4:46 PM) eGFR 60 mL/min/1.73m2 1 *NA* (06/20/16 4:46 PM) BUN [7-22 mg/dL] 17 mg/dL (06/20/16 4:46 PM) Glucose Lvl [70-99 105 mg/dL mg/dL] *HI* (06/20/16 4:46 PM) Calcium Lvl 8.5 mg/dL [8.5-10.5 mg/dL] (06/20/16 4:46 PM) 1Result Comment: The eGFR is calculated [...] should be multiplied by the estimated BMI. HEMATOLOGY Most recent to 1 oldest [Reference Range]: WBC [3.7-10.4 K/CMM] 9.5 K/CMM (06/20/16 4:46 PM) RBC [4.70-6.10 4.56 M/CMM M/CMM] *LOW* (06/20/16 4:46 PM) Hgb [14.0-18.0 g/dL] 13.3 g/dL *LOW* (06/20/16 4:46 PM) Hct [42.0-54.0 %] 39.9 % *LOW* (06/20/16 4:46 PM) MCV [80.0-94.0 fL] 87.4 fL (06/20/16 4:46 PM) MCH [27.0-31.0 pg] 29.2 pg (06/20/16 4:46 PM) MCHC [32.0-36.0 33.4 g/dL g/dL] (06/20/16 4:46 PM) RDW [11.5-14.5 %] 16.7 % *HI* (06/20/16 4:46 PM) Platelet [133-450 179 K/CMM K/CMM] (06/20/16 4:46 PM) MPV [7.4-10.4 fL] 7.7 fL (06/20/16 4:46 PM) Segs [45.0-75.0 %] 75.8 % *HI* (06/20/16 4:46 PM) Lymphocytes 14.4 % [20.0-40.0 %] *LOW* (06/20/16 4:46 PM) Monocytes [2.0-12.0 8.2 % %] (06/20/16 4:46 PM) Eosinophils [0.0-4.0 1.1 % %] (06/20/16 4:46 PM) Basophils [0.0-1.0 0.5 % %] (06/20/16 4:46 PM) Segs-Bands # 7.2 K/CMM [1.5-8.1 K/CMM] (06/20/16 4:46 PM) Lymphocytes # 1.4 K/CMM [1.0-5.5 K/CMM] (06/20/16 4:46 PM) Monocytes # [0.0-0.8 0.8 K/CMM K/CMM] (06/20/16 4:46 PM) Eosinophils # 0.1 K/CMM [0.0-0.5 K/CMM] (06/20/16 4:46 PM) Immunizations No data available for this section Procedures Procedure Date Related Diagnosis Body Site Knee replacement Social History Social History Type Response Smoking Status Never smoker; Exposure to Tobacco Smoke None; Cigarette Smoking Last 365 Days No; Reg Smoking Cessation Counseling No Assessment and Plan No data available for this section
== END | disposition home or self-care (01) ==
LOC: OR 08:31
PROVIDERS: ATTEND Urology
DX: N20.0 Calculus of kidney (principal); N39.41 Urge incontinence; N32.89 Other specified disorders of bladder; N21.0 Calculus in bladder; E11.22 Type 2 diabetes mellitus with diabetic chronic kidney disease; I12.9 Hypertensive chronic kidney disease with stage 1 through stage 4 chronic kidney disease, or unspecified chronic kidney disease; N18.9 Chronic kidney disease, unspecified; N40.1 Benign prostatic hyperplasia with lower urinary tract symptoms; R35.0 Frequency of micturition; R39.14 Feeling of incomplete bladder emptying; R35.1 Nocturia; N32.81 Overactive bladder; N28.1 Cyst of kidney, acquired; N52.9 Male erectile dysfunction, unspecified; E29.1 Testicular hypofunction; G47.30 Sleep apnea, unspecified; E78.00 Pure hypercholesterolemia, unspecified; J45.909 Unspecified asthma, uncomplicated; E66.01 Morbid (severe) obesity due to excess calories; K21.9 Gastro-esophageal reflux disease without esophagitis; F41.9 Anxiety disorder, unspecified; Z01.810 Encounter for preprocedural cardiovascular examination; Z01.812 Encounter for preprocedural laboratory examination; Z01.818 Encounter for other preprocedural examination; Z79.84 Long term (current) use of oral hypoglycemic drugs; Z79.82 Long term (current) use of aspirin; Z68.33 Body mass index [BMI] 33.0-33.9, adult
CPT/HCPCS: 36415 ×2; 52005; 71046; 74420; 80048; 82948; 85025; 93005; C1758; J0696; J1100; J2001; J2405; Q9967

== ENCOUNTER → 2018-05-05 | Day surgery (SDC) | payer MEDICARE ==
[2018-05-03 14:30] LABS: BASOPHILS # (AUTO) 0.1 (0.0-0.1); BASOPHILS % 0.9 % (0.0-1.0); EOSINOPHILS # (AUTO) 0.2 (0.0-0.4); EOSINOPHILS % 2.4 % (0.0-6.0); HEMATOCRIT 45.1 % (38.2-49.6); HEMOGLOBIN 13.7 g/dL (14.0-18.0); LYMPHOCYTES # (AUTO) 1.6 (1.0-3.2); LYMPHOCYTES % 24.8 % (18.0-39.1); MEAN CORPUSCULAR HEMOGLOBIN 23.4 pg (28-32); MEAN CORPUSCULAR HGB CONC 30.4 g/dL (31-35); MONOCYTES # (AUTO) 0.8 (0.2-0.8); MONOCYTES % 11.8 % (4.4-11.3); NEUTROPHILS # (AUTO) 3.9 (2.1-6.9); NEUTROPHILS % 59.8 % (38.7-80.0); PLATELET COUNT 243 x10e3/uL (140-360); RED BLOOD COUNT 5.86 x10e6/uL (4.3-5.7); RED CELL DISTRIBUTION WIDTH 18.6 % (11.7-14.4)
[2018-05-03 14:47] LABS: CALCIUM 9.3 mg/dL (8.4-10.2); CREATININE, SERUM 1.32 mg/dL (0.72-1.25)
[~2018-05-05] MED LIST changes: +BOTULINUM TOXIN TYPE A 100 UNIT VIAL IM ONE; +FENTANYL CITRATE/PF 100MCG/2 ML INJ ONE; -IOPAMIDOL 300MG/ML 50ML INFUS..BTL IV ONE; +MIDAZOLAM HCL 2 MG/2 ML VIAL ONE
[2018-05-05 13:30] VITALS: BP 156/88
--- NOTE | 2018-05-06 01:05 | Operative Report ---
DATE OF PROCEDURE: May 05, 2018 PREOPERATIVE DIAGNOSIS: Refractory urge incontinence. POSTOPERATIVE DIAGNOSIS: Refractory urge incontinence. OPERATION PERFORMED: Cystourethroscopy with intravesical injection of 100 units of Botox. ANESTHESIA: General. COMPLICATIONS: None. CLINICAL SUMMARY: Harpreet Santiago is 72-year-old man with refractory urge incontinence. He has failed multiple medications as well as 2 different attempts at percutaneous InterStim testing. He has also had hydrodistention without improvement. He is brought to the operating room today to attempt Botox. He is aware of the risks of bleeding, infection, injury to adjacent structures, need for additional procedures, and elected to proceed. OPERATIVE PROCEDURE IN DETAIL: Informed consent was verified. Harpreet Santiago was properly identified, taken to the operating room, and placed on the cystoscopy table in supine position. Anesthesia was uneventfully begun. The patient was then carefully and gently repositioned in the dorsal lithotomy position with all pressure points well padded. His genitalia were prepared and draped in usual sterile fashion. The 22.5-Israeli cystoscope sheath with the visual obturator in place was atraumatically inserted into the patient's urethra. The scope was advanced down the relatively unremarkable urethra to the normal sphincteric region, through the prostate bed which was open and into the patient's bladder where panendoscopy revealed grade 1 trabeculations. 100 units of Botox were dissolved in 10 mL of sterile saline. These were injected in 1 mL aliquots in an even distribution throughout the supratrigonal bladder. There was no bleeding. There were no complications. The patient's bladder was drained. The cystoscope was withdrawn, and the patient was uneventfully reversed from anesthesia and taken to recovery room in stable condition. Explicit postoperative instructions were given. Will follow the patient up in the office. Job#: [id number] cc:Aracelis Hernandez M.D.
--- OUTSIDE RECORDS SUMMARY | 2018-05-18 09:42 | XMS REPORT | Continuity of Care Document ---
Author Author Sherry pickering [facility] Interface Address Unknown Phone Unavailable Problems Problem Status Onset Date Classification Date Reported Comments Source VOMITING Active 01/08/2018 [facility] ALCOHOL WITHDRAWAL, ELEVATED LACTIC ACID Active 01/08/2018 [facility] Chest pain in adult 12/08/2017 12/12/2017 [facility] Throat pain in adult 12/08/2017 12/12/2017 [facility] COUGH, CHEST CONGESTION Active 12/07/2017 [facility] M79.609=PAIN IN UNSPECIFIED LIMB M17 Active 11/30/2017 [facility] Obstructive sleep apnea (pediatric) 11/10/2017 02/01/2018 [facility] FIRST NIGHT 86348 Active 10/19/2017 [facility] Cough 10/12/2017 01/13/2018 [facility] R05 Active 10/06/2017 [facility] Age-related osteoporosis without current pathological fracture 09/19/2017 12/22/2017 [facility] OSTEOPOROSIS Active 08/03/2017 [facility] Discharge Diagnosis: Hematuria 06/20/2016 06/23/2016 [facility] BLEEDING CATH Active 06/20/2016 [facility] HEADACHE, MEMORY LOSS Active 12/20/2015 [facility] Discharge Diagnosis: Abdominal pain, suprapubic 09/02/2015 09/05/2015 [facility] ABD PAIN Active 09/02/2015 [facility] COPD HISTORY OF SMOKING Active 08/10/2015 [facility] Anxiety disorder<sup>1</sup> Active 11/10/2013 Problem 01/04/2016 Data migrated from M-Files on 01/02/15. [facility] Benign essential hypertension<sup>2</sup> Active 11/10/2013 Problem 01/04/2016 Data migrated from M-Files on 01/02/15. [facility] Benign prostatic hyperplasia<sup>3</sup> Active 11/10/2013 Problem 01/04/2016 Data migrated from M-Files on 01/02/15. [facility] Body mass index 30+ - obesity<sup>4</sup> Active 11/10/2013 Problem 01/04/2016 Data migrated from [employer] on 01/02/15. [facility] Cough<sup>5</sup> Active 11/10/2013 Problem 01/04/2016 Data migrated from [employer] on 01/02/15. [facility] Gastroesophageal reflux disease<sup>6</sup> Active 11/10/2013 Problem 01/04/2016 Data migrated from [employer] on 01/02/15. [facility] Hyperlipidemia<sup>7</sup> Active 11/10/2013 Problem 01/04/2016 Data migrated from [employer] on 01/02/15. [facility] Insomnia<sup>8</sup> Active 11/10/2013 Problem 01/04/2016 Data migrated from [employer] on 01/02/15. [facility] Osteoporosis<sup>9</sup> Active 11/10/2013 Problem 01/04/2016 Data migrated from [employer] on 01/02/15. [facility] Anxiety disorder<sup>1</sup> Active 11/10/2013 Problem 06/23/2016 Data migrated from [employer] on 01/02/15. PASQUALE Pickering [facility] Benign essential hypertension<sup>2</sup> Active 11/10/2013 Problem 06/23/2016 Data migrated from [employer] on 01/02/15. PASQUALE Pickering [facility] Benign prostatic hyperplasia<sup>3</sup> Active 11/10/2013 Problem 06/23/2016 Data migrated from [employer] on 01/02/15. PASQUALE Pickering [facility] Body mass index 30+ - obesity<sup>4</sup> Active 11/10/2013 Problem 06/23/2016 Data migrated from [employer] on 01/02/15. PASQUALE Pickering [facility] Cough<sup>5</sup> Active 11/10/2013 Problem 06/23/2016 Data migrated from [employer] on 01/02/15. PASQUALE Pickering [facility] Gastroesophageal reflux disease<sup>6</sup> Active 11/10/2013 Problem 06/23/2016 Data migrated from [employer] on 01/02/15. CAMILO Pickering, [facility] Hyperlipidemia<sup>7</sup> Active 11/10/2013 Problem 06/23/2016 Data migrated from [employer] on 01/02/15. CAMILO Pickering, [facility] Insomnia<sup>8</sup> Active 11/10/2013 Problem 06/23/2016 Data migrated from [employer] on 01/02/15. CAMILO Pickering, [facility] Osteoporosis<sup>9</sup> Active 11/10/2013 Problem 06/23/2016 Data migrated from [employer] on 01/02/15. CAMILO Pickering, [facility] Allergic rhinitis Active Problem 02/19/[facility] Benign essential hypertension Active Problem 02/19/2018 [facility] Benign prostatic hyperplasia Active Problem 02/19/2018 [facility] Dementia Active Problem 02/19/2018 [facility] CPAP dependence(<span ID="[id number]</span>) Active Problem 02/19/2018 [facility] GERD (<span ID="[id number]">Confirmed</span>) Active Problem 02/19/2018 [facility] BETHANY (<span ID="[id number]">Confirmed</span>) Active Problem 02/19/2018 [facility] S/P TKR (<span ID="[id number]">Confirmed</span>) Active Problem 02/19/2018 [facility] Insomnia Active Problem 02/19/2018 [facility] Bilateral chronic knee pain Active Problem 02/19/2018 [facility] Mixed hyperlipidemia Active Problem 02/19/2018 [facility] Polyarthralgia Active Problem 02/19/2018 [facility] Osteoporosis Active Problem 02/19/2018 [facility] Persistent cough Active Problem 02/19/2018 [facility] Elevated TSH Active Problem 02/19/2018 [facility] Bilateral shoulder pain Active Problem 02/19/2018 [facility] Sleep apnea Active Problem 02/19/2018 [facility] Type 2 diabetes mellitus without complications Active Problem 02/19/2018 [facility] Unsteady gait Active Problem 02/19/2018 [facility] Other specified disorders of bone density and structure, other site 12/22/2017 [facility] Other specified disorders of bone density and structure, left thigh 12/22/2017 [facility] Hypertension Resolved Problem 06/23/2016 CAMILO Pickering,[facility] Hypertension Resolved Problem 01/04/2016 CAMILO Pickering,[facility] Enlarged prostate Resolved Problem 06/23/2016 [facility] CHRONIC OBSTRUCTIVE PULMON DISEASE W ACU Active [facility] OTHER SPECIFIED CONGENITAL DEFORMITIES Active [facility] AGE-RELATED OSTEOPOROSIS W/O CURRENT PAT Active [facility] ALCOHOL DEPENDENCE WITH WITHDRAWAL, UNSP Active [facility] Medications Medication Details Route Status Patient Instructions Ordering Provider Order Date Source Acetaminophen 300 MG / Codeine Phosphate 30 MG Oral Tablet [Tylenol with Codeine #3] 1 tab, PO, Q6H, PRN Pain, # 15 tab, 0 Refill(s) Active 01/10/2018 [facility] Os-Cj 500 500 mg, 1 tab, Route: PO, Drug form: CHEWTAB, Q8H, Start date: 01/09/18 14:00:00 CDT, Duration: 4 doses or times, Stop date: 01/10/18 14:00:00 CDTNotes: (Same As: Arnulfo) Calcium Carbonate 500 ic=273 mg e lemental calcium Dose= mg calcium carbonate ( mg elemental calcium) No Longer Active 01/09/2018 [facility] potassium chloride 20 mEq oral tablet, extended release 40 mEq, 2 tab, Route: PO, Drug form: ERTAB, ONCE, Dosing Weight 86.364, kg, Start date: 01/09/18 13:12:00 CDT, Stop date: 01/09/18 13:12:00 CDTNotes: (Same as: K-Dur 20) "Do Not Crush" For patients unable to swallow tablet, dissolve in one half glass of water. Allow about 2 minutes for the tablets to disintegrate. Stir before giving to prepare slurry and administer. Please exclude Patient’s with feeding tube less than 14 Alban[place] (Dobhoff, J-tube etc) and pediatric and patients. With food and full glass of water Inactive 01/09/2018 [facility] Calcium Gluconate 2,000 mg, 20 mL, Route: IVPB, ONCE, Dosing Weight 86.364, kg, Start date: 01/09/18 13:12:00 CDT, Stop date: 01/09/18 13:12:00 CDTNotes: WASTE: F/P - Sink; E - Municipal Trash Bin Inactive 01/09/2018 [facility] Fluticasone propionate 0.05 MG/ACTUAT Metered Dose Nasal [place] 50 microgram, 1 spray, Route: NASAL, Drug Form: SPRY, Dosing Weight 86.364, kg, Daily, Start date: 01/09/18 9:00:00 CDT, Duration: 30 day, Stop date: 02/07/18 9:00:00 CDT No Longer Active 01/09/2018 [facility] Fluticasone propionate 0.05 MG/ACTUAT Dry Powder Inhaler 50 microgram, 1 ea, Route: INHALATION, Drug Form: PWDR, Dosing Weight 86.364, kg, BID, Start date: 01/09/18 9:00:00 CDT, Duration: 30 day, Stop date: 02/07/18 17:00:00 CDT No Longer Active 01/09/2018 [facility] donepezil 10 mg, 2 tab, Route: PO, Drug form: TAB, Daily, Dosing Weight 86.364, kg, Start date: 01/09/18 9:00:00 CDT, Duration: 30 day, Stop date: 02/07/18 9:00:00 CDTNotes: (Same as: Aricept) No Longer Active 01/09/2018 [facility] Symbicort 160/4.5 inhalation aerosol with adapter 2 inhalation, Route: INHALATION, Drug Form: AERO/A, Dosing Weight 86.364, kg, BID, Start date: 01/09/18 9:00:00 CDT, Duration: 30 day, Stop date: 02/07/18 17:00:00 CDTNotes: (Same as: Symbicort) WASTE: Aerosol - Return to Pharmacy No Longer Active 01/09/2018 [facility] beclomethasone 1 puff, Route: INHALER, Drug Form: AERO/A, BID, Start date: 01/09/18 9:00:00 CDT, Duration: 30 day, Stop date: 02/07/18 17:00:00 CDTNotes: WASTE: Aerosol - Return to Pharmacy (Same As: Qvar) No Longer Active 01/09/2018 [facility] Sertraline 100 mg, 1 tab, Route: PO, Drug form: TAB, Daily, Dosing Weight 86.364, kg, Start date: 01/09/18 9:00:00 CDT, Duration: 30 day, Stop date: 02/07/18 9:00:00 CDTNotes: (Same as: Zoloft) No Longer Active 01/09/2018 [facility] Thiamine 100 mg, 1 tab, Route: PO, Drug form: TAB, Daily, Dosing Weight 86.364, kg, Start date: 01/09/18 9:00:00 CDT, Duration: 30 day, Stop date: 02/07/18 9:00:00 CDTNotes: (Same As: Vitamin B1) No Longer Active 01/09/2018 [facility] pantoprazole 40 mg, 1 tab, Route: PO, Drug form: ECTAB, Before Breakfast, Dosing Weight 86.364, kg, Start date: 01/09/18 7:30:00 CDT, Duration: 30 day, Stop date: 02/07/18 7:30:00 CDTNotes: Tablet should not be c hewed or crushed. (Same as: Protonix) No Longer Active 01/09/2018 [facility] montelukast 10 mg, 1 tab, Route: PO, Drug form: TAB, Bedtime, Dosing Weight 86.364, kg, Start date: 01/08/18 21:00:00 CDT, Duration: 30 day, Stop date: 02/06/18 21:00:00 CDTNotes: (Same as:Singulair) No Longer Active 01/09/2018 [facility] carvedilol 6.25 mg, 2 tab, Route: PO, Drug form: TAB, BID, Dosing Weight 86.364, kg, Start date: 01/08/18 21:00:00 CDT, Duration: 30 day, Stop date: 02/07/18 9:00:00 CDTNotes: Give with food. (Same As: Coreg) No Longer Active 01/09/2018 [facility] Pravastatin 40 mg, 2 tab, Route: PO, Drug form: TAB, Bedtime, Dosing Weight 86.364, kg, Start date: 01/08/18 21:00:00 CDT, Duration: 30 day, Stop date: 02/06/18 21:00:00 CDTNotes: (Same as: Pravachol) No Longer Active 01/09/2018 [facility] Aspirin 81 mg, 1 tab, Route: PO, Drug form: ECTAB, Daily, Dosing Weight 86.364, kg, Start date: 01/08/18 20:00:00 CDT, Duration: 30 day, Stop date: 02/07/18 9:00:00 CDTNotes: Do not crush or chew. (Same As: Ecotrin) No Longer Active 01/09/2018 [facility] Lovenox 40 mg, 0.4 mL, Route: SUB-Q, Drug form: INJ, [id number], Dosing Weight 86.364, kg, Start date: 01/08/18 20:00:00 CDT, Duration: 30 day, Stop date: 02/06/18 20:00:00 CDTNotes: (Same as: Lovenox) No Longer Active 01/09/2018 [facility] Trazodone Hydrochloride 100 MG Oral Tablet 100 mg, 2 tab, Route: PO, Drug form: TAB, Bedtime, Dosing Weight 86.364, kg, PRN Insomnia, Start date: 01/08/18 19:42:00 CDT, Duration: 30 day, Stop date: 02/07/18 19:41:00 CDTNotes: (Same As: Desyrel) No Longer Active 01/09/2018 [facility] Insulin Lispro 1 unit, 0.01 mL, Route: SUB-Q, Drug form: SOLN, Bedtime, Dosing Weight 86.364, kg, PRN Blood Glucose Results, Start date: 01/08/18 19:39:00 CDT, Duration: 30 day, Stop date: 02/07/18 19:38:00 CDTNotes: (Same as: Humalog ) Roll in palms of hands gently; Do not shake `vigorously. "Single Patient Use Only " WASTE: F/P - Black; E - Municipal Trash Bin Stable for 28 days at room temperature. Expires in days from Date No Longer Active 01/09/2018 [facility] Dextrose 50% Syringe 25 mL, Route: IVP, Dosing Weight 86.364, kg, PRN, PRN Blood Glucose Results, Start date: 01/08/18 19:39:00 CDT, Duration: 30 day, Stop date: 02/07/18 19:38:00 CDT Inactive 01/09/2018 [facility] Glucagon 1 mg, Route: IM, PRN, Dosing Weight 86.364, kg, PRN Blood Glucose Results, Start date: 01/08/18 19:39:00 CDT, Duration: 30 day, Stop date: 02/07/18 19:38:00 CDT Inactive 01/09/2018 [facility] NS (Bolus) IV 1,000 mL, 500 ml/hr, Infuse Over: 2 hr, Route: IV, 1,000, Drug form: INJ, ONCE, Priority: STAT, Dosing Weight 86.364 kg, Start date: 01/08/18 15:13:00 CDT, Stop date: 01/08/18 15:13:00 CDT Inactive 01/08/2018 [facility] Chlordiazepoxide Hydrochloride 25 MG Oral Capsule 25 mg, 1 cap, Route: PO, Drug form: CAP, Q6H, Dosing Weight 86.364, kg, PRN Withdrawal, Alcohol Withdrawal, Start date: 01/08/18 11:54:00 CDT, Duration: 30 day, Stop date: 02/07/18 11:53:00 CDT No Longer Active 01/08/2018 [facility] NS 1,000 mL 1,000 mL, Rate: 100 ml/hr, Infuse over: 10 hr, Route: IV, Dosing Weight 86.364 kg, Total Volume: 1,000, Start date: 01/08/18 9:36:00 CDT, Duration: 30 day, Stop date: 02/07/18 9:35:00 CDT, 2, m2 No Longer Active 01/08/2018 [facility] Docusate 100 mg, 1 cap, Route: PO, Drug form: CAP, BID, Dosing Weight 86.364, kg, PRN as needed for constipation, Start date: 01/08/18 9:35:00 CDT, Duration: 30 day, Stop date: 02/07/18 9:34:00 CDTNotes: (Same as: Colace) (Do Not Crush) No Longer Active 01/08/2018 [facility] Ondansetron 4 mg, 1 tab, Route: PO, Drug form: TABDIS, Q6H, Dosing Weight 86.364, kg, PRN Nausea & Vomiting, Start date: 01/08/18 9:35:00 CDT, Duration: 30 day, Stop date: 02/07/18 9:34:00 CDTNotes: (Same as: Zofran ODT) No Longer Active 01/08/2018 [facility] Acetaminophen 650 mg, 2 tab, Route: PO, Drug form: TAB, Q4H, Dosing Weight 86.364, kg, PRN Pain 1-3/Temp > 100.4 F, Start date: 01/08/18 9:35:00 CDT, Duration: 30 day, Stop date: 02/07/18 9:34:00 CDTNotes: Do not exceed 4 gm/day. (Same as: Tylenol) No Longer Active 01/08/2018 [facility] Acetaminophen 325 MG / Hydrocodone Bitartrate 5 MG Oral Tablet 1 tab, Route: PO, Drug Form: TAB, Dosing Weight 86.364, kg, Q6H, PRN Pain Score 4-6, Start date: 01/08/18 9:35:00 CDT, Duration: 30 day, Stop date: 02/07/18 9:34:00 CDTNotes: (Same as: Heth 325/5) Do not exceed 4gm/day of acetaminophen. No Longer Active 01/08/2018 [facility] Reglan 10 mg, 2 mL, Route: IVP, Drug form: INJ, ONCE, Dosing Weight 86.364, kg, Priority: STAT, Start date: 01/08/18 7:30:00 CDT, Stop date: 01/08/18 7:30:00 CDTNotes: (Same as: Reglan) Inactive 01/08/2018 [facility] Chlordiazepoxide Hydrochloride 25 MG Oral Capsule 25 mg, 1 cap, Route: PO, ONCE, Dosing Weight 86.364, kg, Priority: STAT, Start date: 01/08/18 7:29:00 CDT, Stop date: 01/08/18 7:29:00 CDT Inactive 01/08/2018 [facility] Sodium Chloride 0.9% IV 1,000 mL + M.V.I.-12 10 mL Daily + folic acid IV 1 mg Daily + thiamine IV 1 1,000 mL, Rate: 100 ml/hr, Infuse over: 10.1 hr, Route: IV, Dosing Weight 86.364 kg, Total Volume: 1,011.2, Start date: 01/08/18 7:29:00 CDT, Duration: 1 doses or times, Stop date: 01/08/18 17:34:00 CDT, 2, [id number]: PROTECT FROM LIGHT REFRIGERATE Inactive 01/08/2018 [facility] Ativan 1 mg, Route: IVP, Drug form: INJ, ONCE, Dosing Weight 86.364, kg, Priority: STAT, Start date: 01/08/18 7:29:00 CDT, Stop date: 01/08/18 7:29:00 CDT Inactive 01/08/2018 [facility] Ondansetron 4 mg, Route: IVP, ONCE, Dosing Weight 86.364, kg, Priority: STAT, Start date: 01/08/18 7:19:00 CDT, Stop date: 01/08/18 7:19:00 CDT Inactive 01/08/2018 [facility] Glucagon 1 mg, Route: IM, Drug form: PDR/INJ, PRN, Dosing Weight 86.364, kg, PRN Blood Glucose Results, Start date: 01/08/18 7:19:00 CDT, Duration: 30 day, Stop date: 02/07/18 7:18:00 CDT No Longer Active 01/08/2018 [facility] Dextrose 50% Syringe 25 gm, 50 mL, Route: IVP, Drug Form: INJ, Dosing Weight 86.364, kg, PRN, PRN Blood Glucose Results, Start date: 01/08/18 7:19:00 CDT, Duration: 30 day, Stop date: 02/07/18 7:18:00 CDT No Longer Active 01/08/2018 [facility] Saline Flush 0.9% 10 mL, Route: IVP, Drug Form: INJ, Dosing Weight 86.364, kg, PRN, PRN Line Flush, Start date: 01/08/18 7:19:00 CDT, Duration: 30 day, Stop date: 02/07/18 7:18:00 CDTNotes: Same as: BD Posiflush Sterile No Longer Active 01/08/2018 [facility] Sodium Chloride 0.9% (Bolus) IV 1,000 mL, 1000 ml/hr, Infuse Over: 1 hr, Route: IV, 1,000, Drug form: INJ, ONCE, Priority: STAT, Dosing Weight 86.364 kg, Start date: 01/08/18 7:19:00 CDT, Stop date: 01/08/18 7:19:00 CDT Inactive 01/08/2018 [facility] donepezil 10 mg oral tablet 10 mg=1 tab, PO, Daily, # 90 tab, 1 Refill(s), Pharmacy: [facility]/pharmacy #[id number] Active 12/22/2017 [facility] OneTouch Ultra Blue Blood Glucose Test Strip Check blood sugar once daily., MISC, Daily, # 100 ea, Not insulin dependent, Does not use insulin pump, Last DM eval date 09/22/17, 5 Refill(s) Active 12/22/2017 [facility] benzonatate 100 MG Oral Capsule [Tessalkole Marmolejo] 100 mg=1 cap, PO, Q8H, PRN cough, do not crush or chew, X 10 day, # 20 cap, 0 Refill(s) Active 12/08/2017 [facility] albuterol 90 mcg/inh inhalation aerosol 1 puff, INHALATION, Q4H, PRN for wheezing, # 9 gm, 0 Refill(s) Active 12/08/2017 [facility] Azithromycin 5 Day Dose Pack 250 mg oral tablet See Instructions, Take 2 tablets by mouth the first day then 1 tablet by mouth days 2-5., X 5 day, # 6 tab, 0 Refill(s) Active 12/08/2017 [facility] Saline Flush 0.9% 10 mL, Route: IVP, Drug Form: INJ, Dosing Weight 85, kg, PRN, PRN Line Flush, Start date: 12/07/17 21:43:00 CDT, Duration: 30 day, Stop date: 01/06/18 21:42:00 CDTNotes: (Same as: BD Posiflush) No Longer Active 12/08/2017 [facility] Trazodone Hydrochloride 100 MG Oral Tablet 100 mg=1 tab, PO, Bedtime, PRN Insomnia, # 30 tab, 0 Refill(s), Pharmacy: [facility]/pharmacy #[id number] Active 11/25/2017 [facility] 200 ACTUAT Albuterol 0.09 MG/ACTUAT Metered Dose Inhaler [ProAir HFA] 2 puff, INHALER, Q6H, PRN wheezing, coughing, or shortness of breath, # 3 ea, 1 Refill(s), [id number] Alendronic acid 70 MG Oral Tablet 70 mg=1 tab, PO, Q7D, with 6 to 8 ounces plain water, at least 30 minutes before first food, beverage, or medication of the day, # 12 tab, 3 Refill(s), [id number] Active 11/11/2017 [facility] Trazodone Hydrochloride 100 MG Oral Tablet 100 mg=1 tab, PO, Bedtime, PRN Insomnia, X 30 day, # 30 tab, 0 Refill(s), [id number] No Longer Active 10/30/2017 [facility] Fluticasone propionate 0.05 MG/ACTUAT Metered Dose Nasal [place] 1 spray, NASAL, Daily, # 1 ea, 5 Refill(s), [id number] Active 10/25/2017 [facility] linaclotide 0.145 MG Oral Capsule [Linzess] 145 microgram=1 cap, PO, Daily, 30 minutes prior to the first meal of the day, # 90 cap, 1 Refill(s), [id number] Active 10/09/2017 [facility] montelukast 10 mg oral tablet 10 mg=1 tab, PO, Bedtime, # 90 tab, 1 Refill(s), [id number] Active 10/09/2017 [facility] carvedilol 6.25 mg oral tablet 6.25 mg=1 tab, PO, BID, # 180 tab, 1 Refill(s), [id number] Active 10/09/2017 [facility] Trazodone Hydrochloride 100 MG Oral Tablet 100 mg=1 tab, PO, Bedtime, PRN Insomnia, # 30 tab, 0 Refill(s), [id number] No Longer Active 09/30/2017 [facility] levocetirizine 5 mg oral tablet 5 mg=1 tab, PO, Bedtime, PRN as needed for allergy symptoms, # 90 tab, 0 Refill(s), [id number], Stop fexofenadine Active 09/24/2017 [facility] Azithromycin 5 Day Dose Pack 250 mg oral tablet See Instructions, Take 2 tablets by mouth the first day then 1 tablet by mouth days 2-5., X 5 day, # 6 tab, 0 Refill(s), [id number] No Longer Active 09/24/2017 [facility] olopatadine 7 MG/ML Ophthalmic Solution [Pazeo] 1 drp, BOTH EYES, Daily, # 3 mL, 1 Refill(s), [id number] Active 09/16/2017 [facility] Metformin hydrochloride 500 MG Oral Tablet 500 mg=1 tab, PO, BID-Meals, # 180 tab, 1 Refill(s), [id number] Active 09/16/2017 [facility] ciclopirox 80 MG/ML Topical Solution 1 appl, TOP, Daily, # 7 mL, 3 Refill(s), [id number] Active 09/16/2017 [facility] Albuterol 0.83 MG/ML Inhalant Solution 2.5 mg=3 mL, NEB, Q6H, PRN as needed for shortness of breath and wheezing, # 300 mL, 3 Refill(s), [id number] Active 09/10/2017 [facility] donepezil 10 mg oral tablet 10 mg=1 tab, PO, Daily, # 90 tab, 1 Refill(s), [id number] Active 09/02/2017 [facility] Alprazolam 0.5 MG Oral Tablet 0.5 mg=1 tab, PO, Daily, PRN anxiety, # 30 tab, 0 Refill(s) Active 09/02/2017 [facility] Trazodone Hydrochloride 100 MG Oral Tablet 100 mg=1 tab, PO, Bedtime, PRN Insomnia, # 30 tab, 0 Refill(s), [id number] No Longer Active 09/02/2017 [facility] Nighttime cough, PO, Daily, Refill(s) 0 No Longer Active 09/02/2017 [facility] donepezil 10 mg oral tablet 10 mg=1 tab, PO, Daily, # 90 tab, 1 Refill(s) Inactive 09/02/2017 [facility] Aspirin 81 MG Enteric Coated Tablet [Brianna Aspirin] 81 mg=1 tab, PO, Daily, 0 Refill(s) Active 09/02/2017 [facility] 200 ACTUAT Albuterol 0.09 MG/ACTUAT Metered Dose Inhaler [ProAir HFA] 1 puff, INHALER, Q4H, PRN for wheezing, # 8.5 gm, 0 Refill(s) No Longer Active 09/02/2017 [facility] pravastatin 40 mg oral tablet 40 mg=1 tab, PO, Bedtime, # 90 tab, 1 Refill(s) Active 09/02/2017 [facility] montelukast 10 mg oral tablet 10 mg=1 tab, PO, Bedtime, # 90 tab, 1 Refill(s) No Longer Active 09/02/2017 [facility] linaclotide 0.145 MG Oral Capsule [Linzess] 145 microgram=1 cap, PO, Daily, 30 minutes prior to the first meal of the day, # 30 cap, 0 Refill(s) No Longer Active 09/02/2017 [facility] pantoprazole 40 mg oral enteric coated tablet 40 mg=1 tab, PO, Daily, # 90 tab, 1 Refill(s) Active 09/02/2017 [facility] hydrochlorothiazide 12.5 mg oral tablet 12.5 mg=1 tab, PO, Daily, # 90 tab, 1 Refill(s) Active 09/02/2017 [facility] Trazodone Hydrochloride 50 MG Oral Tablet 50 mg=1 tab, PO, Bedtime, # 30 tab, 1 Refill(s) Inactive 09/02/2017 [facility] fexofenadine 180 mg oral tablet 180 mg=1 tab, PO, Daily, # 90 tab, 0 Refill(s) No Longer Active 09/02/2017 [facility] sertraline 100 mg oral tablet 100 mg=1 tab, PO, Daily, # 90 tab, 0 Refill(s) Active 09/02/2017 [facility] [facility] Alprazolam 0.5 MG Oral Tablet 0.5 mg=1 tab, PO, Daily, # 30 tab, 0 Refill(s) Inactive 09/02/2017 [facility] Clobetasol Propionate 0.5 MG/ML Topical Cream 1 appl, TOP, BID, # 60 gm, 0 Refill(s) Active 09/02/2017 [facility] Calcium 600+D oral tablet 1 tab, PO, BID, 0 Refill(s) Active 09/02/2017 [facility] Symbicort 160/4.5 inhalation aerosol with adapter 2 puff, INHALATION, BID, # 1 ea, 1 Refill(s) Active 09/02/2017 [facility] Diclofenac Sodium 10 MG/ML Topical Cream 0 Refill(s) Active 09/02/2017 [facility] naproxen 500 mg oral tablet 500 mg=1 tab, PO, BID, PRN Pain, # 30 tab, 0 Refill(s) Active 09/02/2017 [facility] Albuterol 0.83 MG/ML Inhalant Solution 2.5 mg=3 mL, NEB, Q6H, 0 Refill(s) No Longer Active 09/02/2017 [facility] Metformin hydrochloride 500 MG Oral Tablet 500 mg=1 tab, PO, BID-Meals, # 180 tab, 1 Refill(s) No Longer Active 09/02/2017 [facility] Medication Milanta, PO, Daily, Refill(s) 0 No Longer Active 09/02/2017 [facility] ciclopirox 80 MG/ML Topical Solution 1 appl, TOP, Daily, # 9.9 ml, 11 Refill(s) No Longer Active 09/02/2017 [facility] acitretin 25 mg oral capsule 25 mg=1 cap, PO, Daily, # 14 cap, 0 Refill(s) Active 09/02/2017 [facility] Fluticasone propionate 0.05 MG/ACTUAT Dry Powder Inhaler 50 microgram=1 ea, INHALATION, BID, # 180 ea, 0 Refill(s) Active 09/02/2017 [facility] Alendronic acid 70 MG Oral Tablet 70 mg=1 tab, PO, Q7D, with 6 to 8 ounces plain water, at least 30 minutes before first food, beverage, or medication of the day, # 12 tab, 3 Refill(s) No Longer Active 09/02/2017 [facility] carvedilol 6.25 mg oral tablet 6.25 mg=1 tab, PO, BID, # 180 tab, 1 Refill(s) No Longer Active 09/02/2017 [facility] Sodium Chloride 0.154 MEQ/ML Injectable Solution 1,000 mL, 1,000 ml/hr, Infuse Over: 1 hr, Route: IV, 1,000, Drug form: INJ, ONCE, Priority: STAT, Dosing Weight 84.091 kg, Start date: 09/02/15 10:12:00, Duration: 1 doses or times, Stop date: 09/02/15 10:12:00 Inactive 09/02/2015 [facility] GI cocktail 30 mL, Route: PO, Dosing Weight 84.091, kg, ONCE, STAT, Start date: 09/02/15 5:56:00, Stop date: 09/02/15 5:56:00 Inactive 09/02/2015 [facility] Ondansetron 4 mg, Route: IVP, ONCE, Dosing Weight 84.091, kg, Priority: STAT, Start date: 09/02/15 5:56:00, Stop date: 09/02/15 5:56:00 Inactive 09/02/2015 [facility] Saline Flush 0.9% 10 mL, Route: IVP, Drug Form: INJ, Dosing Weight 84.091, kg, PRN, PRN Line Flush, Start date: 09/02/15 5:56:00, Duration: 30 day, Stop date: 10/02/15 5:55:00Notes: (Same as: BD Posiflush) Inactive 09/02/2015 [facility] Allergies, Adverse Reactions, Alerts Substance Category Reaction Severity Reaction type Status Date Reported Comments Source Immunizations Immunization Date Given Site Status Last Updated Comments Source pneumococcal 13-valent vaccine<sup>1</sup> 09/02/2017 Left Deltoid completed [place] Result Comment: Patient waited 15 min with no reaction. [facility] Results Order Name Results Value Reference Range Date Interpretation Comments Source ELECTROLYTES CO2 30 meq/L 24 - 32 01/10/2018 [facility] ELECTROLYTES Calcium Lvl 7.9 mg/dL 8.5 - 10.5 01/10/2018 [facility] ELECTROLYTES AGAP 7.7 meq/L 10.0 - 20.0 01/10/2018 [facility] ELECTROLYTES eGFR 68 mL/min/1.73m2 01/10/2018 Result Comment: The eGFR is calculated using the CKD-EPI formula. In most young, healthy individuals the eGFR will be >90 [...] from the National Kidney Disease Education Program (NKDEP) which additionally recommends that when the eGFR is used in patients with extremes of body mass index for purposes of drug dosing, the eGFR should be multiplied by the estimated BMI. [facility] ELECTROLYTES Glucose Lvl 89 mg/dL 70 - 99 01/10/2018 [facility] ELECTROLYTES Potassium Lvl 3.7 meq/L 3.5 - 5.1 01/10/2018 [facility] ELECTROLYTES Chloride Lvl 109 meq/L 95 - 109 01/10/2018 [facility] ELECTROLYTES BUN 13 mg/dL 7 - 22 01/10/2018 [facility] ELECTROLYTES Sodium Lvl 143 meq/L 135 - 145 01/10/2018 [facility] ELECTROLYTES Creatinine Lvl 1.07 mg/dL 0.50 - 1.40 01/10/2018 [facility] CHEM PANEL Magnesium Lvl 1.6 mg/dL 1.8 - 2.4 01/09/2018 [facility] CHEM PANEL Bili Total 0.8 mg/dL 0.2 - 1.3 01/09/2018 [facility] CHEM PANEL eGFR 78 mL/min/1.73m2 01/09/2018 Result Comment: The eGFR is calculated using the CKD-EPI formula. In most young, healthy individuals the eGFR will be >90 [...] from the National Kidney Disease Education Program (NKDEP) which additionally recommends that when the eGFR is used in patients with extremes of body mass index for purposes of drug dosing, the eGFR should be multiplied by the estimated BMI. [facility] CHEM PANEL Albumin Lvl 3.0 g/dL 3.5 - 5.0 01/09/2018 [facility] CHEM PANEL Total Protein 5.5 g/dL 6.4 - 8.4 01/09/2018 [facility] CHEM PANEL Globulin 2.5 g/dL 2.7 - 4.2 01/09/2018 [facility] CHEM PANEL ALT 31 unit/L 0 - 65 01/09/2018 [facility] CHEM PANEL Alk Phos 48 unit/L 39 - 136 01/09/2018 [facility] CHEM PANEL AST 33 unit/L 0 - 37 01/09/2018 [facility] CHEM PANEL A/G Ratio 1.2 0.7 - 1.6 01/09/2018 [facility] CHEM PANEL BUN 9 mg/dL 7 - 22 01/09/2018 [facility] CHEM PANEL Sodium Lvl 142 meq/L 135 - 145 01/09/2018 [facility] CHEM PANEL Glucose Lvl 87 mg/dL 70 - 99 01/09/2018 [facility] CHEM PANEL Creatinine Lvl 0.96 mg/dL 0.50 - 1.40 01/09/2018 [facility] CHEM PANEL AGAP 10.2 meq/L 10.0 - 20.0 01/09/2018 [facility] CHEM PANEL Potassium Lvl 3.2 meq/L 3.5 - 5.1 01/09/2018 [facility] CHEM PANEL Chloride Lvl 107 meq/L 95 - 109 01/09/2018 [facility] CHEM PANEL CO2 28 meq/L 24 - 32 01/09/2018 [facility] CHEM PANEL Calcium Lvl 6.8 mg/dL 8.5 - 10.5 01/09/2018 Result Comment: Critical Result(s) called to Joshua Clement at 01/09/2018 07:52 by Tanner Albarran. Read back OK. [facility] CHEM PANEL B/C Ratio 9 6 - 25 01/09/2018 [facility] CHEM PANEL Lactic Acid Lvl 0.9 mMol/L 0.5 - 2.2 01/09/2018 [facility] HEMATOLOGY RDW 16.1 % 11.5 - 14.5 01/09/2018 [facility] HEMATOLOGY MCHC 32.7 g/dL 32.0 - 36.0 01/09/2018 [facility] HEMATOLOGY Platelet 151 K/CMM 133 - 450 01/09/2018 [facility] HEMATOLOGY MPV 7.1 fL 7.4 - 10.4 01/09/2018 [facility] HEMATOLOGY Hgb 12.4 g/dL 14.0 - 18.0 01/09/2018 [facility] HEMATOLOGY RBC 4.44 M/CMM 4.70 - 6.10 01/09/2018 [facility] Hct 37.8 % 42.0 - 54.0 01/09/2018 [facility] WBC 4.8 K/CMM 3.7 - 10.4 01/09/2018 [facility] MCV 85.1 fL 80.0 - 94.0 01/09/2018 [facility] MCH 27.8 pg 27.0 - 31.0 01/09/2018 [facility] HEMATOLOGY Lymphocytes 28.1 % 20.0 - 40.0 01/09/2018 [facility] HEMATOLOGY Basophils 1.0 % 0.0 - 1.0 01/09/2018 [facility] HEMATOLOGY Segs-Bands # 2.8 K/CMM 1.5 - 8.1 01/09/2018 [facility] Lymphocytes # 1.3 K/CMM 1.0 - 5.5 01/09/2018 [facility] Monocytes # 0.4 K/CMM 0.0 - 0.8 01/09/2018 [facility] Eosinophils 3.6 % 0.0 - 4.0 01/09/2018 [facility] Monocytes 8.6 % 2.0 - 12.0 01/09/2018 [facility] Segs 58.7 % 45.0 - 75.0 01/09/2018 [facility] Eosinophils # 0.2 K/CMM 0.0 - 0.5 01/09/2018 [facility] CARDIAC ENZYMES Troponin-I 0.08 ng/mL 0.00 - 0.40 01/09/2018 [facility] CARDIAC ENZYMES Troponin-I 0.08 ng/mL 0.00 - 0.40 01/09/2018 [facility] CHEM PANEL Lactic Acid Lvl 2.8 mMol/L 0.5 - 2.2 01/08/2018 [facility] CHEM PANEL Lactic Acid Lvl 6.3 mMol/L 0.5 - 2.2 01/08/2018 Result Comment: Critical Result(s) called to Jo Millard at 01/08/2018 14:41 byHA. Read back OK. [facility] URINE AND STOOL UA Urobilinogen <=1.0 mg/dL 0.1 - 1.0 01/08/2018 [facility] URINE AND STOOL UA Blood Small *ABN* (01/08/18 10:09 AM) Negative 01/08/2018 [facility] URINE AND STOOL UA Leuk Est Negative (01/08/18 10:09 AM) Negative 01/08/2018 [facility] URINE AND STOOL UA WBC 4 /HPF 0 - 5 01/08/2018 [facility] URINE AND STOOL UA RBC 3 /HPF 0 - 2 01/08/2018 [facility] URINE AND STOOL UA Sq Epi Occasional /LPF Few /LPF 01/08/2018 [facility] URINE AND STOOL UA Nitrite Negative (01/08/18 10:09 AM) Negative 01/08/2018 [facility] URINE AND STOOL UA Spec Grav 1.017 <=1.030 01/08/2018 [facility] URINE AND STOOL UA pH 7.0 5.0 - 8.0 01/08/2018 [facility] URINE AND STOOL UA Protein 100 mg/dL Negative mg/dL 01/08/2018 [facility] URINE AND STOOL UA Bacteria Few /HPF None Seen /HPF 01/08/2018 [facility] URINE AND STOOL UA Mucus Few /LPF None Seen /LPF 01/08/2018 [facility] URINE AND STOOL UA Glucose 150 mg/dL Negative mg/dL 01/08/2018 [facility] URINE AND STOOL UA Ketones Trace mg/dL Negative mg/dL 01/08/2018 [facility] URINE AND STOOL UA Bili Negative *NA* (01/08/18 10:09 AM) Negative 01/08/2018 [facility] URINE AND STOOL UA Turbidity Clear (01/08/18 10:09 AM) Clear 01/08/2018 [facility] URINE AND STOOL UA Color Yellow *NA* (01/08/18 10:09 AM) Yellow 01/08/2018 [facility] CARDIAC ENZYMES Troponin-I 0.06 ng/mL 0.00 - 0.40 01/08/2018 [facility] CHEM PANEL Lipase Lvl 172 unit/L 73 - 393 01/08/2018 [facility] CHEM PANEL Magnesium Lvl 1.7 mg/dL 1.8 - 2.4 01/08/2018 [facility] CHEM PANEL Ketone Quantitative 0.84 mmol/L <=0.27 mmol/L 01/08/2018 [facility] CHEM PANEL Globulin 3.4 g/dL 2.7 - 4.2 01/08/2018 [facility] CHEM PANEL B/C Ratio 11 6 - 25 01/08/2018 [facility] CHEM PANEL AGAP 15.5 meq/L 10.0 - 20.0 01/08/2018 [facility] CHEM PANEL A/G Ratio 1.1 0.7 - 1.6 01/08/2018 [facility] CHEM PANEL eGFR 79 mL/min/1.73m2 01/08/2018 Result Comment: The eGFR is calculated using the CKD-EPI formula. In most young, healthy individuals the eGFR will be >90 [...] from the National Kidney Disease Education Program (NKDEP) which additionally recommends that when the eGFR is used in patients with extremes of body mass index for purposes of drug dosing, the eGFR should be multiplied by the estimated BMI. [facility] CHEM PANEL Bili Total 0.7 mg/dL 0.2 - 1.3 01/08/2018 [facility] CHEM PANEL AST 46 unit/L 0 - 37 01/08/2018 [facility] CHEM PANEL Alk Phos 86 unit/L 39 - 136 01/08/2018 [facility] CHEM PANEL Total Protein 7.2 g/dL 6.4 - 8.4 01/08/2018 [facility] CHEM PANEL Calcium Lvl 7.9 mg/dL 8.5 - 10.5 01/08/2018 [facility] CHEM PANEL Glucose Lvl 119 mg/dL 70 - 99 01/08/2018 [facility] CHEM PANEL CO2 26 meq/L 24 - 32 01/08/2018 [facility] CHEM PANEL Albumin Lvl 3.8 g/dL 3.5 - 5.0 01/08/2018 [facility] CHEM PANEL ALT 45 unit/L 0 - 65 01/08/2018 [facility] CHEM PANEL Chloride Lvl 102 meq/L 95 - 109 01/08/2018 [facility] CHEM PANEL Sodium Lvl 140 meq/L 135 - 145 01/08/2018 [facility] CHEM PANEL Creatinine Lvl 0.95 mg/dL 0.50 - 1.40 01/08/2018 [facility] CHEM PANEL BUN 10 mg/dL 7 - 22 01/08/2018 [facility] CHEM PANEL Potassium Lvl 3.5 meq/L 3.5 - 5.1 01/08/2018 [facility] HEMATOLOGY Monocytes 7.2 % 2.0 - 12.0 01/08/2018 [facility] HEMATOLOGY Basophils 0.9 % 0.0 - 1.0 01/08/2018 [facility] Eosinophils 0.3 % 0.0 - 4.0 01/08/2018 [facility] Lymphocytes # 0.7 K/CMM 1.0 - 5.5 01/08/2018 [facility] Segs-Bands # 5.2 K/CMM 1.5 - 8.1 01/08/2018 [facility] Basophils # 0.1 K/CMM 0.0 - 0.2 01/08/2018 [facility] Monocytes # 0.5 K/CMM 0.0 - 0.8 01/08/2018 [facility] Lymphocytes 10.5 % 20.0 - 40.0 01/08/2018 [facility] Segs 81.1 % 45.0 - 75.0 01/08/2018 [facility] MCHC 32.8 g/dL 32.0 - 36.0 01/08/2018 [facility] Hgb 14.7 g/dL 14.0 - 18.0 01/08/2018 [facility] Hct 44.7 % 42.0 - 54.0 01/08/2018 [facility] WBC 6.5 K/CMM 3.7 - 10.4 01/08/2018 [facility] RBC 5.23 M/CMM 4.70 - 6.10 01/08/2018 [facility] MCH 28.0 pg 27.0 - 31.0 01/08/2018 [facility] MCV 85.5 fL 80.0 - 94.0 01/08/2018 [facility] Platelet 189 K/CMM 133 - 450 01/08/2018 [facility] RDW 16.1 % 11.5 - 14.5 01/08/2018 [facility] MPV 6.8 fL 7.4 - 10.4 01/08/2018 [facility] Chest 1view DX Chest 1view DX Portable chest: The cardiomediastinal silhouette and pulmonary vasculature are within normal limits. The lungs and pleural spaces are clear. There are no acute osseous abnormalities. There is no significant change compared to 12/07/2017. IMPRESSION: No acute radiographic abnormality in the chest. [id number] 01/08/2018 - - Read by: Orestes Marie MD Dictated Date/time: 01/08/18 07:39 Electronically Signed by: Orestes Marie MD 01/08/18 07:40 FINAL REPORT [facility] Bone scan 3 phase CA Bone scan 3 phase NM Bone scan 3 phase NM CLINICAL HISTORY: - H/O BILATERAL KNEE REPLACEMENTS. ; COMPARISON: Right knee series 12/03/2012 TECHNIQUE: 25 mCi of technetium 99m MDP were administered intravenously. Flow, blood pool and delayed images of both knees were performed in AP, PA and lateral projections. IV Site: Left Antecubital FINDINGS: The flow and blood pool images reveal no abnormal accumulation of tracer activity at either knee. The delayed images demonstrate mild increase in tracer activity on the left side with mild to moderate increase in tracer activity at the right knee especially at the margin of the tibia. IMPRESSION: Mild increase in tracer activity is noted on the delayed images of the right knee particularly along the tibial prosthesis. Correlation with plain films is suggested. Further evaluation may be obtained with Technetium white blood cell scan if there is clinical concern for infection. SL: [id number] 12/08/2017 - - Read by: Chris Liirano MD Dictated Date/time: 12/08/17 14:07 Electronically Signed by: Chris Liriano MD 12/08/17 14:12 FINAL REPORT [facility] CARDIAC ENZYMES CK MB Index null 0.0 - 2.5 12/08/2017 [facility] CARDIAC ENZYMES BNP 36 pg/mL <=100 pg/mL 12/08/2017 [facility] CARDIAC ENZYMES CK MB null 0.5 - 3.6 12/08/2017 [facility] CARDIAC ENZYMES Total CK 85 unit/L 12 - 191 12/08/2017 [facility] CARDIAC ENZYMES Troponin-I null 0.00 - 0.40 12/08/2017 [facility] CHEM PANEL Phosphorus 2.4 mg/dL 2.5 - 4.5 12/08/2017 [facility] CHEM PANEL Magnesium Lvl 2.0 mg/dL 1.8 - 2.4 12/08/2017 [facility] CHEM PANEL eGFR 68 mL/min/1.73m2 12/08/2017 Result Comment: The eGFR is calculated using the CKD-EPI formula. In most young, healthy individuals the eGFR will be >90 [...] from the National Kidney Disease Education Program (NKDEP) which additionally recommends that when the eGFR is used in patients with extremes of body mass index for purposes of drug dosing, the eGFR should be multiplied by the estimated BMI. [facility] CHEM PANEL B/C Ratio 11 6 - 25 12/08/2017 [facility] CHEM PANEL AGAP 12.8 meq/L 10.0 - 20.0 12/08/2017 [facility] CHEM PANEL Globulin 3.7 g/dL 2.7 - 4.2 12/08/2017 [facility] CHEM PANEL A/G Ratio 1.0 0.7 - 1.6 12/08/2017 [facility] CHEM PANEL AST 24 unit/L 0 - 37 12/08/2017 [facility] CHEM PANEL Total Protein 7.4 g/dL 6.4 - 8.4 12/08/2017 [facility] CHEM PANEL Alk Phos 75 unit/L 39 - 136 12/08/2017 [facility] CHEM PANEL ALT 34 unit/L 0 - 65 12/08/2017 [facility] CHEM PANEL Albumin Lvl 3.7 g/dL 3.5 - 5.0 12/08/2017 [facility] CHEM PANEL Bili Total 0.3 mg/dL 0.2 - 1.3 12/08/2017 [facility] CHEM PANEL BUN 12 mg/dL 7 - 22 12/08/2017 [facility] CHEM PANEL Glucose Lvl 119 mg/dL 70 - 99 12/08/2017 [facility] CHEM PANEL Creatinine Lvl 1.07 mg/dL 0.50 - 1.40 12/08/2017 [facility] CHEM PANEL CO2 30 meq/L 24 - 32 12/08/2017 [facility] CHEM PANEL Sodium Lvl 140 meq/L 135 - 145 12/08/2017 [facility] CHEM PANEL Potassium Lvl 3.8 meq/L 3.5 - 5.1 12/08/2017 [facility] CHEM PANEL Chloride Lvl 101 meq/L 95 - 109 12/08/2017 [facility] CHEM PANEL Calcium Lvl 8.8 mg/dL 8.5 - 10.5 12/08/2017 [facility] HEMATOLOGY Monocytes # 0.5 K/CMM 0.0 - 0.8 12/08/2017 [facility] HEMATOLOGY Lymphocytes # 1.6 K/CMM 1.0 - 5.5 12/08/2017 [facility] Eosinophils # 0.2 K/CMM 0.0 - 0.5 12/08/2017 [facility] Eosinophils 3.9 % 0.0 - 4.0 12/08/2017 [facility] Basophils 1.0 % 0.0 - 1.0 12/08/2017 [facility] Segs-Bands # 2.5 K/CMM 1.5 - 8.1 12/08/2017 [facility] Monocytes 10.0 % 2.0 - 12.0 12/08/2017 [facility] Lymphocytes 33.1 % 20.0 - 40.0 12/08/2017 [facility] Segs 52.0 % 45.0 - 75.0 12/08/2017 [facility] Platelet 196 K/CMM 133 - 450 12/08/2017 [facility] MPV 7.3 fL 7.4 - 10.4 12/08/2017 [facility] MCHC 33.4 g/dL 32.0 - 36.0 12/08/2017 [facility] RDW 15.4 % 11.5 - 14.5 12/08/2017 [facility] MCV 89.1 fL 80.0 - 94.0 12/08/2017 [facility] MCH 29.7 pg 27.0 - 31.0 12/08/2017 [facility] Hct 40.8 % 42.0 - 54.0 12/08/2017 [facility] Hgb 13.6 g/dL 14.0 - 18.0 12/08/2017 [facility] WBC 4.8 K/CMM 3.7 - 10.4 12/08/2017 [facility] RBC 4.58 M/CMM 4.70 - 6.10 12/08/2017 [facility] PTT 34.4 s 22.9 - 35.8 12/08/2017 [facility] INR 0.93 0.85 - 1.17 12/08/2017 [facility] PT 12.5 s 12.0 - 14.7 12/08/2017 [facility] Chest 2 views DX Chest 2 views DX Clinical Indication: - sob, cough, fever Comparison: 10/06/2017 FINDINGS: PA and lateral views of the chest are performed. Heart size is within normal limits. Mediastinal contours are unremarkable. Lungs are clear without infiltrate or mass. No pleural effusion or pneumothorax. No acute osseous abnormality. IMPRESSION: 1. No radiographic evidence for acute process in the chest. SL: [id number] 12/07/2017 - - Read by: Taj Solares MD Dictated Date/time: 12/07/17 21:57 Electronically Signed by: Taj Solares MD 12/07/17 21:57 FINAL REPORT [facility] Chest 2 views DX Chest 2 views DX XR CHEST 2 VIEWS HISTORY: - R05 Cough COMPARISON: None. FINDINGS: The lungs are clear. The heart and vascular markings are normal. No pleural abnormality. The bones are intact. IMPRESSION: No active process. SL: [id number] 10/06/2017 - - Read by: Jason Brar MD Dictated Date/time: 10/06/17 18:26 Electronically Signed by: Jason Brar MD 10/06/17 18:27 FINAL REPORT [facility] Bone Density Scan Bone Density Scan Patient Name: ELMO SIDDIQUI : 1945; Age: 72 years y/o Male MR: [id number] Study: Bone Density Scan 09/15/2017 11:35 AM [employer] Clinical Indication: - osteoporosis. COMPARISON: None FINDINGS: The axial lumbar bone mineral density is 89% of the expected age matched bone mass with a T-score -1.1. Axial lumbar average BMD is 0.97 g/cm2. The left femoral neck bone mineral density is 80% of the expected age matched bone mass with a T-score of -1.5. Left femoral neck BMD is 0.78 g/cm2. The total femoral BMD is 0.4 g/cm2. IMPRESSION: 1. Osteopenia of the lumbar spine. 2. Osteopenia of the left femoral neck. The World Health Organization has established that OSTEOPOROSIS occurs at -2.5 or more standard deviations (SD) below peak bone mass. OSTEOPENIA (low bone mass) occurs at -1.0 standard deviations to -2.5 standard deviations below peak bone mass. SL: [id number] 09/15/2017 - - Read by: Riccardo Ortega MD Dictated Date/time: 09/15/17 12:30 Electronically Signed by: Riccardo Ortega MD 09/15/17 12:31 FINAL REPORT [facility] CHEM PANEL eGFR 60 mL/min/1.73m2 06/20/2016 Result Comment: The eGFR is calculated using the CKD-EPI formula. In most young, healthy individuals the eGFR will be >90 [...] from the National Kidney Disease Education Program (NKDEP) which additionally recommends that when the eGFR is used in patients with extremes of body mass index for purposes of drug dosing, the eGFR should be multiplied by the estimated BMI. [facility] CHEM PANEL Calcium Lvl 8.5 mg/dL 8.5 - 10.5 06/20/2016 [facility] CHEM PANEL Chloride Lvl 103 meq/L 95 - 109 06/20/2016 [facility] CHEM PANEL CO2 31 meq/L 24 - 32 06/20/2016 [facility] CHEM PANEL Potassium Lvl 3.7 meq/L 3.5 - 5.1 06/20/2016 [facility] CHEM PANEL Glucose Lvl 105 mg/dL 70 - 99 06/20/2016 [facility] CHEM PANEL BUN 17 mg/dL 7 - 22 06/20/2016 [facility] CHEM PANEL Creatinine Lvl 1.20 mg/dL 0.50 - 1.40 06/20/2016 [facility] CHEM PANEL Sodium Lvl 141 meq/L 135 - 145 06/20/2016 [facility] CHEM PANEL AGAP 10.7 meq/L 10.0 - 20.0 06/20/2016 [facility] MCHC 33.4 g/dL 32.0 - 36.0 06/20/2016 [facility] Platelet 179 K/CMM 133 - 450 06/20/2016 [facility] RDW 16.7 % 11.5 - 14.5 06/20/2016 [facility] MPV 7.7 fL 7.4 - 10.4 06/20/2016 [facility] MCV 87.4 fL 80.0 - 94.0 06/20/2016 [facility] Hct 39.9 % 42.0 - 54.0 06/20/2016 [facility] MCH 29.2 pg 27.0 - 31.0 06/20/2016 [facility] RBC 4.56 M/CMM 4.70 - 6.10 06/20/2016 [facility] WBC 9.5 K/CMM 3.7 - 10.4 06/20/2016 [facility] Hgb 13.3 g/dL 14.0 - 18.0 06/20/2016 [facility] Monocytes 8.2 % 2.0 - 12.0 06/20/2016 [facility] Eosinophils 1.1 % 0.0 - 4.0 06/20/2016 [facility] HEMATOLOGY Segs 75.8 % 45.0 - 75.0 06/20/2016 [facility] Lymphocytes 14.4 % 20.0 - 40.0 06/20/2016 [facility] Basophils 0.5 % 0.0 - 1.0 06/20/2016 [facility] Eosinophils # 0.1 K/CMM 0.0 - 0.5 06/20/2016 [facility] Lymphocytes # 1.4 K/CMM 1.0 - 5.5 06/20/2016 [facility] Monocytes # 0.8 K/CMM 0.0 - 0.8 06/20/2016 [facility] Segs-Bands # 7.2 K/CMM 1.5 - 8.1 06/20/2016 [facility] Brain wo contrast MRI Brain wo contrast MRI EXAM: MRI BRAIN WITHOUT CONTRAST DATE: 12/29/2015 10:22 AM CDT INDICATION: Headaches,Memory Loss or Impairment COMPARISON: None TECHNIQUE: Multiplanar, multisequence MRI of the brain without contrast. IV contrast: None. FINDINGS: A few small foci of T2 signal elevation are present in the deep white matter of the cerebral hemispheres bilaterally additional punctate foci seen in the subcortical white matter of the frontal lobes. Diffusion-weighted images fail to demonstrate any recent ischemic change. Routine non-contrast imaging demonstrates no mass lesion, signal change, or structural abnormality. The ventricles and extra-axial spaces are normal for the patient's age. There is no acute or chronic hemorrhagic change. The intracranial arterial and venous structures demonstrate normal flow voids. The paranasal sinuses and skull base are unremarkable. IMPRESSION: 1. No mass or mass effect. 2. No findings of normal pressure hydrocephalus. 3. Nonspecific foci of T2 signal elevation in the subcortical and deep white matter are not associated mass effect and likely evidence of microvascular ischemic change in a patient this age. Their number is not advanced for the patient's age. 12/29/2015 - - Read by: Luis Antonio Muro MD Dictated Date/time: 12/29/15 20:22 Electronically Signed by: Luis Antonio Muro MD 12/29/15 20:27 FINAL REPORT CAMILO Pickering CARDIAC ENZYMES Troponin-I null 0.00 - 0.40 09/02/2015 [facility] CHEM PANEL Lipase Lvl 101 unit/L 73 - 393 09/02/2015 [facility] CHEM PANEL A/G Ratio 1.2 0.7 - 1.6 09/02/2015 [facility] CHEM PANEL Globulin 3.0 g/dL 2.0 - 4.0 09/02/2015 [facility] CHEM PANEL B/C Ratio 10 6 - 25 09/02/2015 [facility] CHEM PANEL AGAP 10.6 meq/L 10.0 - 20.0 09/02/2015 [facility] CHEM PANEL eGFR 42 mL/min/1.73m2 09/02/2015 Result Comment: The eGFR is calculated using the CKD-EPI formula. In most young, healthy individuals the eGFR will be >90 [...] from the National Kidney Disease Education Program (NKDEP) which additionally recommends that when the eGFR is used in patients with extremes of body mass index for purposes of drug dosing, the eGFR should be multiplied by the estimated BMI. [facility] CHEM PANEL Bili Total 0.3 mg/dL 0.2 - 1.3 09/02/2015 [facility] CHEM PANEL Alk Phos 71 unit/L 39 - 136 09/02/2015 [facility] CHEM PANEL AST 32 unit/L 0 - 37 09/02/2015 [facility] CHEM PANEL ALT 37 unit/L 0 - 65 09/02/2015 [facility] CHEM PANEL Albumin Lvl 3.6 g/dL 3.5 - 5.0 09/02/2015 [facility] CHEM PANEL Calcium Lvl 7.9 mg/dL 8.5 - 10.5 09/02/2015 [facility] CHEM PANEL Total Protein 6.6 g/dL 6.4 - 8.4 09/02/2015 [facility] CHEM PANEL Chloride Lvl 100 meq/L 95 - 109 09/02/2015 [facility] CHEM PANEL CO2 27 meq/L 24 - 32 09/02/2015 [facility] CHEM PANEL Potassium Lvl 3.6 meq/L 3.5 - 5.1 09/02/2015 [facility] CHEM PANEL BUN 16 mg/dL 7 - 22 09/02/2015 [facility] CHEM PANEL Creatinine Lvl 1.61 mg/dL 0.50 - 1.40 09/02/2015 [facility] CHEM PANEL Glucose Lvl 100 mg/dL 70 - 99 09/02/2015 [facility] CHEM PANEL Sodium Lvl 134 meq/L 135 - 145 09/02/2015 [facility] HEMATOLOGY Eosinophils # 0.2 K/CMM 0.0 - 0.5 09/02/2015 [facility] HEMATOLOGY Segs 48.4 % 45.0 - 75.0 09/02/2015 [facility] HEMATOLOGY Lymphocytes 35.9 % 20.0 - 40.0 09/02/2015 [facility] HEMATOLOGY Monocytes 9.7 % 2.0 - 12.0 09/02/2015 [facility] HEMATOLOGY Basophils 1.2 % 0.0 - 1.0 09/02/2015 [facility] HEMATOLOGY Segs-Bands # 1.9 K/CMM 1.5 - 8.1 09/02/2015 [facility] HEMATOLOGY Eosinophils 4.8 % 0.0 - 4.0 09/02/2015 [facility] HEMATOLOGY Lymphocytes # 1.4 K/CMM 1.0 - 5.5 09/02/2015 [facility] HEMATOLOGY Monocytes # 0.4 K/CMM 0.0 - 0.8 09/02/2015 [facility] HEMATOLOGY WBC 3.8 K/CMM 3.7 - 10.4 09/02/2015 [facility] HEMATOLOGY MCHC 32.7 g/dL 32.0 - 36.0 09/02/2015 [facility] HEMATOLOGY MPV 7.1 fL 7.4 - 10.4 09/02/2015 [facility] HEMATOLOGY RDW 15.7 % 11.5 - 14.5 09/02/2015 [facility] HEMATOLOGY Platelet 185 K/CMM 133 - 450 09/02/2015 [facility] HEMATOLOGY RBC 4.54 M/CMM 4.70 - 6.10 09/02/2015 [facility] HEMATOLOGY MCH 30.1 pg 27.0 - 31.0 09/02/2015 [facility] HEMATOLOGY MCV 92.0 fL 80.0 - 94.0 09/02/2015 [facility] HEMATOLOGY Hgb 13.6 g/dL 14.0 - 18.0 09/02/2015 [facility] HEMATOLOGY Hct 41.8 % 42.0 - 54.0 09/02/2015 [facility] URINE AND STOOL UA Turbidity Clear (09/02/15 6:31 AM) Clear 09/02/2015 [facility] URINE AND STOOL UA Color Ltyellow 09/02/2015 [facility] URINE AND STOOL UA Sq Epi None Seen 09/02/2015 [facility] URINE AND STOOL UA Urobilinogen <=1.0 mg/dL 0.1 - 1.0 09/02/2015 [facility] URINE AND STOOL UA RBC null 0 - 2 09/02/2015 [facility] URINE AND STOOL UA WBC null 0 - 5 09/02/2015 [facility] URINE AND STOOL UA Blood Negative (09/02/15 6:31 AM) Negative 09/02/2015 [facility] URINE AND STOOL UA Leuk Est Negative (09/02/15 6:31 AM) Negative 09/02/2015 [facility] URINE AND STOOL UA Nitrite Negative (09/02/15 6:31 AM) Negative 09/02/2015 [facility] URINE AND STOOL UA Ketones Negative mg/dL Negative mg/dL 09/02/2015 [facility] URINE AND STOOL UA Bili Negative *NA* (09/02/15 6:31 AM) Negative 09/02/2015 [facility] URINE AND STOOL UA Glucose Negative mg/dL Negative mg/dL 09/02/2015 [facility] URINE AND STOOL UA Spec Grav 1.011 <=1.030 09/02/2015 [facility] URINE AND STOOL UA Protein Negative mg/dL Negative mg/dL 09/02/2015 [facility] URINE AND STOOL UA pH 7.0 5.0 - 8.0 09/02/2015 [facility] Vital Signs Vital Sign Value Date Comments Source Temperature Oral (F) 98 F 01/10/2018 [facility] Systolic (mm Hg) 169 01/10/2018 [facility] Diastolic (mm Hg) 103 01/10/2018 [facility] Heart Rate 68 01/10/2018 [facility] Heart Rate 78 01/10/2018 [facility] Temperature Oral (F) 97.3 F 01/10/2018 [facility] Systolic (mm Hg) 152 01/10/2018 [facility] Diastolic (mm Hg) 83 01/10/2018 [facility] Temperature Oral (F) 97.7 F 01/10/2018 [facility] Heart Rate 69 01/10/2018 [facility] Respitory Rate 18 01/10/2018 [facility] Systolic (mm Hg) 166 01/10/2018 [facility] Diastolic (mm Hg) 96 01/10/2018 [facility] Respitory Rate 18 01/10/2018 [facility] Respitory Rate 18 01/10/2018 [facility] Weight 86.364 01/08/2018 [facility] BMI Calculated 32.68 01/08/2018 [facility] Height 162.56 cm 01/08/2018 [facility] Respitory Rate 18 12/08/2017 [facility] Systolic (mm Hg) 157 12/08/2017 [facility] Diastolic (mm Hg) 65 12/08/2017 [facility] Heart Rate 74 12/08/2017 [facility] Respitory Rate 17 12/08/2017 [facility] Respitory Rate 16 12/08/2017 [facility] Systolic (mm Hg) 149 12/08/2017 [facility] Diastolic (mm Hg) 74 12/08/2017 [facility] Temperature Oral (F) 98.4 F 12/08/2017 [facility] Systolic (mm Hg) 163 12/08/2017 [facility] Diastolic (mm Hg) 86 12/08/2017 [facility] Heart Rate 67 12/08/2017 [facility] Temperature Oral (F) 98.6 F 12/08/2017 [facility] BMI Calculated 34.27 10/26/[facility] Height 157.48 cm 10/26/2017 [facility] Weight 85 10/26/2017 [facility] Weight 89.545 09/24/2017 [facility] BMI Calculated 36.11 09/24/2017 [facility] Height 157.48 cm 09/24/2017 [facility] Respitory Rate 16 09/24/2017 [facility] Temperature Oral (F) 97.9 F 09/24/2017 [facility] Heart Rate 70 09/24/2017 [facility] Systolic (mm Hg) 135 09/24/2017 [facility] Diastolic (mm Hg) 79 09/24/2017 [facility] Temperature Oral (F) 97.8 F 09/02/2017 [facility] Heart Rate 63 09/02/2017 [facility] Respitory Rate 16 09/02/2017 [facility] BMI Calculated 36.73 09/02/2017 [facility] Height 154.94 cm 09/02/2017 [facility] Weight 88.182 09/02/2017 [facility] Systolic (mm Hg) 142 09/02/2017 [facility] Diastolic (mm Hg) 74 09/02/2017 [facility] Respitory Rate 18 06/21/2016 [facility] Temperature Oral (F) 98 F 06/21/2016 [facility] Heart Rate 70 06/21/2016 [facility] Systolic (mm Hg) 163 06/21/2016 [facility] Diastolic (mm Hg) 85 06/21/2016 [facility] Temperature Oral (F) 98.5 F 06/20/2016 [facility] Height 154.94 cm 06/20/2016 [facility] Respitory Rate 16 06/20/2016 [facility] Systolic (mm Hg) 171 06/20/2016 [facility] Diastolic (mm Hg) 94 06/20/2016 [facility] Heart Rate 69 06/20/2016 [facility] BMI Calculated 35.98 06/20/2016 [facility] Weight 86.364 06/20/2016 [facility] Systolic (mm Hg) 102 09/02/2015 [facility] Diastolic (mm Hg) 72 09/02/2015 [facility] Respitory Rate 13 09/02/2015 [facility] Temperature Oral (F) 97.7 F 09/02/2015 [facility] Respitory Rate 13 09/02/2015 [facility] Systolic (mm Hg) 119 09/02/2015 [facility] Diastolic (mm Hg) 63 09/02/2015 [facility] Respitory Rate 21 09/02/2015 [facility] Systolic (mm Hg) 111 09/02/2015 [facility] Diastolic (mm Hg) 70 09/02/2015 [facility] BMI Calculated 33.91 09/02/2015 [facility] Height 157.48 cm 09/02/2015 [facility] Weight 84.091 09/02/2015 [facility] Temperature Oral (F) 98.2 F 09/02/2015 [facility] Heart Rate 68 09/02/2015 [facility] BMI Calculated 33.91 08/16/2015 [facility] Weight 84.091 08/16/2015 [facility] Height 157.48 cm 08/16/2015 [facility] Encounters Location Location Details Encounter Type Encounter Number Reason For Visit Attending Provider ADM Date DC Date Status Source [facility] Outpatient [id number] Joel Mejía 08/16/2015 08/17/[address] [facility] [place] [facility] [id number] Jeferson Barros 09/02/2015 09/02/2015 [facility] Outpatient [facility] [id number] Gregg Smith 12/29/2015 12/30/2015 [facility] Outpatient [id number] Gregg Smith 01/01/2016 01/02/2016 [facility] Emergency [id number] Allan Boles 06/20/2016 06/21/2016 [facility] Outpatient [id number] EDWIGE WU 09/02/2017 [facility] [id number] Khushbu Aysha 09/02/2017 09/03/2017 [facility] Phone Message [id number] 09/14/2017 09/16/2017 [facility] Phone Message [id number] 09/14/2017 09/16/2017 [facility] Phone Message [id number] 09/14/2017 09/16/2017 [facility] Outpatient [id number] Edwige Wu 09/15/2017 09/16/2017 [facility] Phone Message [id number] 09/17/2017 09/19/2017 [facility] Outpatient [id number] EDWIGE WU 09/24/2017 [facility] Outpatient [id number] Edwige Wu 09/24/2017 09/25/2017 [facility] [id number] [facility]/06/2017 10/07/2017 [facility] Phone Message [id number] 10/09/2017 10/11/2017 [facility] Phone Message [id number] 10/09/2017 10/11/2017 [facility] Phone Message [id number] 10/23/2017 10/25/2017 [facility] Outpatient [id number] ALFONSO RILEY 10/26/2017 [facility] Outpatient [id number] Edwige Wu 10/26/2017 10/27/2017 [facility] Outpatient [id number] Tiana Hudiqui 10/27/2017 10/27/2017 [facility] Phone Message [id number] 10/30/2017 11/01/2017 [facility] Phone Message [id number] 11/09/2017 11/11/2017 [facility] Phone Message [id number] 11/11/2017 11/13/2017 [facility] Phone Message [id number] 11/25/2017 11/27/2017 [facility] Emergency [id number] Zhou Yu 12/08/2017 12/08/2017 [facility] Outpatient [id number] Severo Carballo 12/08/2017 12/09/2017 [facility] Phone Message [id number] 12/22/2017 12/24/2017 [facility] Inpatient [id number] Sho Priest 01/08/2018 01/10/2018 [facility] Outpatient [id number] EDWIGE WU 01/21/2018 [facility] Ambulatory Pre-Reg [id number] Edwige Wu 01/21/2018 01/21/2018 [facility] Procedures Procedure Code Date Perfomer Comments Source Examination of eye<sup>1</sup> [id number] 08/28/2017 DR Iyer [facility] Examination of eye<sup>1</sup> [id number] 08/28/2017 DR Iyer [facility] Reduction of fracture of upper arm with internal fixation<sup>2</sup> [id number] 08/03/2012 left forearm [facility] Total replacement of right knee joint [id number] 08/03/2012 [facility] Reduction of fracture of upper arm with internal fixation<sup>2</sup> [id number] 08/03/2012 left forearm [facility] Total replacement of right knee joint [id number] 08/03/2012 [facility] Replacement of right knee joint [id number] [facility] Replacement of right knee joint [id number] [facility] Knee replacement [id number] [facility] Knee replacement [id number] [facility] Knee replacement [id number] [facility]
== END | disposition home or self-care (01) ==
LOC: OR 08:13
PROVIDERS: ATTEND Urology
DX: N39.41 Urge incontinence (principal); N32.89 Other specified disorders of bladder; N32.81 Overactive bladder; N40.1 Benign prostatic hyperplasia with lower urinary tract symptoms; R35.0 Frequency of micturition; R39.14 Feeling of incomplete bladder emptying; R35.1 Nocturia; E11.22 Type 2 diabetes mellitus with diabetic chronic kidney disease; I12.9 Hypertensive chronic kidney disease with stage 1 through stage 4 chronic kidney disease, or unspecified chronic kidney disease; N18.9 Chronic kidney disease, unspecified; E66.01 Morbid (severe) obesity due to excess calories; E23.0 Hypopituitarism; N52.9 Male erectile dysfunction, unspecified; N20.0 Calculus of kidney; N28.1 Cyst of kidney, acquired; G47.33 Obstructive sleep apnea (adult) (pediatric); E78.00 Pure hypercholesterolemia, unspecified; K21.9 Gastro-esophageal reflux disease without esophagitis; J45.909 Unspecified asthma, uncomplicated; Z01.812 Encounter for preprocedural laboratory examination; Z79.82 Long term (current) use of aspirin; Z79.84 Long term (current) use of oral hypoglycemic drugs; Z68.33 Body mass index [BMI] 33.0-33.9, adult
CPT/HCPCS: 36415 ×2; 52287; 80048; 82948; 85025; J0587; J0696; J1100; J2001; J2250; J2405

== ENCOUNTER → 2024-03-30 | Day surgery (SDC) | payer MEDICARE ==
[~2024-03-30] MED LIST changes: +AMBIEN5 MG PO; +AMLODIPINE BESYL5 MG PO; -CEFTRIAXONE SOD 1 GM VIAL ONE; -DEXAMETHASONE SOD PHOS INJ 4 MG/ML VIAL ONE; +FLUOXETINE HCL20 MG PO; +IOPAMIDOL 610MG/1ML 300 MG/ML VIAL IV ONE; -MIDAZOLAM HCL 2 MG/2 ML VIAL ONE; +NEURONTIN100 MG PO; -ONDANSETRON HCL INJ 2 MG/ML VIAL ONE; +ONDANSETRON HCL INJ 2MG/ML 2ML 2 MG/ML VIAL ONE
[2024-03-30 06:33] LABS: BASOPHILS # (AUTO) 0.1 (0.0-0.1); BASOPHILS % 0.8 % (0.0-1.0); EOSINOPHILS # (AUTO) 0.2 (0.0-0.4); EOSINOPHILS % 2.5 % (0.0-6.0); HEMATOCRIT 46.6 % (38.2-49.6); HEMOGLOBIN 15.5 g/dL (14.0-18.0); LYMPHOCYTES # (AUTO) 2.2 (1.0-3.2); LYMPHOCYTES % 33.7 % (18.0-39.1); MEAN CORPUSCULAR HEMOGLOBIN 29.6 pg (28-32); MEAN CORPUSCULAR HGB CONC 33.3 g/dL (31-35); MEAN CORPUSCULAR VOLUME 89.1 fL (81-99); MONOCYTES # (AUTO) 0.6 (0.2-0.8); MONOCYTES % 8.8 % (4.4-11.3); NEUTROPHILS # (AUTO) 3.5 (2.1-6.9); NEUTROPHILS % 53.9 % (38.7-80.0); PLATELET COUNT 188 x10e3/uL (140-360); RED BLOOD COUNT 5.23 x10e6/uL (4.3-5.7); RED CELL DISTRIBUTION WIDTH 15.2 % (11.7-14.4); WHITE BLOOD COUNT 6.47 x10e3/uL (4.8-10.8)
[2024-03-30 06:48] LABS: ANION GAP 13.9 mmol/L (8-16); CALCIUM 9.9 mg/dL (8.4-10.2); CREATININE, SERUM 1.28 mg/dL (0.72-1.25)
[2024-03-30 06:50] LABS: POTASSIUM 2.9 mmol/L (3.5-5.1)
[2024-03-30 08:18] VITALS: TEMP 97.8
[2024-03-30] MEDS: PHENAZOPYRIDINE HCL 100 MG TAB ONE (08:51)
[2024-03-30 09:14] VITALS: BP 123/67; PULSE 71; RESP 18; O2SAT 96
[2024-03-30] MEDS: LACTATED RINGER'S 1,000 ML ONE (11:05)
[2024-03-30] MEDS: CEFTRIAXONE 1 GM VIAL ONE (11:05)
== END | disposition home or self-care (01) ==
LOC: OR 05:38
PROVIDERS: ATTEND Urology
DX: N32.81 Overactive bladder (principal); N39.41 Urge incontinence; N39.0 Urinary tract infection, site not specified; N32.89 Other specified disorders of bladder; N40.1 Benign prostatic hyperplasia with lower urinary tract symptoms; E29.1 Testicular hypofunction; R35.1 Nocturia; N52.9 Male erectile dysfunction, unspecified; I10 Essential (primary) hypertension; E78.5 Hyperlipidemia, unspecified; K21.9 Gastro-esophageal reflux disease without esophagitis; Z79.82 Long term (current) use of aspirin; Z79.84 Long term (current) use of oral hypoglycemic drugs; Z79.899 Other long term (current) drug therapy; Z68.36 Body mass index [BMI] 36.0-36.9, adult; Z98.890 Other specified postprocedural states
CPT/HCPCS: 36415; 52005; 52287; 71046; 74420; 80048; 85025; 93005; C1758; J0587; J0696; J2001; J2405; J2704; J3010; J7121; Q9967